=== PATIENT | female | born 1970 | race Caucasian/White ===

== ENCOUNTER 2018-07-01 12:18 | Observation (INO) | payer BC ==
[~2018-07-01] VITALS: Ht 154.9 cm; Wt 105.5 kg
[~2018-07-01 12:18] MED LIST: IBUP-1450 PO; PROP10TA7 PO
[2018-07-01] MEDS ORDERED: SODIUM CHLORIDE 0.9% 1000ML 1,000 ML IV STA (12:31)
--- NOTE | 2018-07-01 12:36 | EMERGENCY ROOM VISIT NOTE ---
History Report prepared by Gideon: Bakari Lee Under the Supervision of: Dr. Matteo Stearns M.D. First contact with patient: 12:24 Chief Complaint: DIZZY Stated Complaint: HEART RELATED, NAUSEA Nursing Triage Summary: see triage note ambulatory independantly with steady upright gait History of Present Illness The patient is a 48 year old female who presents to the Emergency Room with complaints of "lightheaded" sensations that she has been experiencing "sporadically" over the past couple of weeks. The patient states that she felt lightheaded this morning and felt like she was going to pass out. The patient also notes that she experienced an intermittent "tight knot in my chest" at 1030 this morning, 2 hours ago. She admits that she has been on high blood pressure medication for over a year but did not start taking it as prescribed as June 17. She was not taking the medication at all. She denies any SOB. Source of History: patient, spouse/significant other Onset: CP 2 hours ago Position: chest Quality: other ("tight knot" ) Timing: intermittent Associated Symptoms: + headache (lightheaded) Review of Systems See HPI for pertinent positives & negatives. A total of 10 systems reviewed and were otherwise negative. Past Medical & Surgical Old medical records were reviewed. Nurse's notes were reviewed and I agree with. HTN, borderline diabetic. Social History Smoking Status: Never Smoker Drug Use: none Marital Status: Housing Status: lives with significant other Occupation Status: employed Current/Historical Medications Scheduled Atorvastatin (Lipitor), 10 MG PO DAILY Furosemide (Lasix), 20 MG PO DAILY Hydrochlorothiazide (Hydrochlorothiazide), 25 MG PO DAILY Potassium Chloride Microencaps (Potassium Chloride Er), 10 MEQ PO DAILY Allergies Coded Allergies: No Known Allergies (Verified , 07/01/18) Physical Exam Vital Signs Date Time Temp Pulse Resp B/P (MAP) Pulse Ox O2 Delivery O2 Flow Rate FiO2 07/01/18 14:16 72 16 135/88 97 Room Air 07/01/18 12:20 36.8 88 20 157/101 96 Room Air Physical Exam General: Non-ill appearing middle age female in no acute distress. HEENT: Normal cephalic atraumatic. Pupils are equal round and reactive to light. Extraocular movements are intact. Oropharynx is pink with moist mucous membranes. No swelling of the mouth lips or tongue. Neck: Supple with a midline trachea. No meningeal signs or stiffness, no JVD or bruits. No Stridor. Chest: Clear to auscultation bilaterally. No wheezes or rhonchi. No increased work of breathing. Heart: regular rate and rhythm. Abdomen: Soft nontender, nondistended without rebound guarding or rigidity. Extremities: No cyanosis clubbing or edema. No calf tenderness or assymetry Spine/Back. Non tender to palpation. No CVA tenderness Skin: Good turgor without rashes. Neurologic exam: Cranial nerves two through 12 are intact. Motor and sensation are intact and symmetrical throughout. Medical Decision & Procedures ER Provider Diagnostic Interpretation: Radiology results as stated below per my review and radiologist interpretation: CHEST ONE VIEW PORTABLE CLINICAL HISTORY: 48 years-old Female presenting with CHEST PAIN. TECHNIQUE: Portable upright AP view of the chest was obtained. COMPARISON: 06/25/2016. FINDINGS: Cardiomediastinal silhouette normal. Lungs and pleural spaces clear. Osseous structures normal. Cholecystectomy clips noted. IMPRESSION: 1. No acute cardiopulmonary disease. Electronically signed by: Solo Barakat M.D. 07/01/2018 12:47 PM Dictated Date/Time: 07/01/2018 12:46 PM Laboratory Results 07/01/18 13:00 Red Blood Count 4.89, Mean Corpuscular Volume 77.7, Mean Corpuscular Hemoglobin 25.4, Mean Corpuscular Hemoglobin Concent 32.6, Mean Platelet Volume 9.7, Neutrophils (%) (Auto) 64.5, Lymphocytes (%) (Auto) 27.9, Monocytes (%) (Auto) 5.7, Eosinophils (%) (Auto) 1.3, Basophils (%) (Auto) 0.3, Neutrophils # (Auto) 4.56, Lymphocytes # (Auto) 1.97, Monocytes # (Auto) 0.40, Eosinophils # (Auto) 0.09, Basophils # (Auto) 0.02 07/01/18 13:00 Test 07/01/18 13:00 White Blood Count 7.06 K/uL (4.8-10.8) Red Blood Count 4.89 M/uL (4.2-5.4) Hemoglobin 12.4 g/dL (12.0-16.0) Hematocrit 38.0 % (37-47) Mean Corpuscular Volume 77.7 fL (80-100) Mean Corpuscular Hemoglobin 25.4 pg (25-34) Mean Corpuscular Hemoglobin Concent 32.6 g/dl (32-36) Platelet Count 215 K/uL (130-400) Mean Platelet Volume 9.7 fL (7.4-10.4) Neutrophils (%) (Auto) 64.5 % Lymphocytes (%) (Auto) 27.9 % Monocytes (%) (Auto) 5.7 % Eosinophils (%) (Auto) 1.3 % Basophils (%) (Auto) 0.3 % Neutrophils # (Auto) 4.56 K/uL (1.4-6.5) Lymphocytes # (Auto) 1.97 K/uL (1.2-3.4) Monocytes # (Auto) 0.40 K/uL (0.11-0.59) Eosinophils # (Auto) 0.09 K/uL (0-0.5) Basophils # (Auto) 0.02 K/uL (0-0.2) RDW Standard Deviation 47.0 fL (36.4-46.3) RDW Coefficient of Variation 16.6 % (11.5-14.5) Immature Granulocyte % (Auto) 0.3 % Immature Granulocyte # (Auto) 0.02 K/uL (0.00-0.02) Anion Gap 5.0 mmol/L (3-11) Est Creatinine Clear Calc Drug Dose 93.1 ml/min Estimated GFR () 95.9 Estimated GFR (Non- 82.8 BUN/Creatinine Ratio 16.8 (10-20) Calcium Level 9.2 mg/dl (8.5-10.1) Total Bilirubin 0.4 mg/dl (0.2-1) Direct Bilirubin 0.1 mg/dl (0-0.2) Aspartate Amino Transf (AST/SGOT) 15 U/L (15-37) Alanine Aminotransferase (ALT/SGPT) 22 U/L (12-78) Alkaline Phosphatase 80 U/L (45-117) Total Creatine Kinase 76 U/L (26-192) Creatine Kinase MB < 1.0 ng/ml (0.5-3.6) Creatine Kinase MB Ratio (0-3.0) Total Protein 7.9 gm/dl (6.4-8.2) Albumin 4.1 gm/dl (3.4-5.0) Lipase 158 U/L (73-393) Thyroid Stimulating Hormone (TSH) 1.310 uIu/ml (0.300-4.500) Laboratory studies as stated above per my review. Medications Administered Medications (Trade) Dose Ordered Sig/Sirisha Route Start Time Stop Time Status Last Admin Dose Admin Sodium Chloride 1,000 ml @ 999 mls/hr Q1H1M STAT IV 07/01/18 12:31 07/01/18 13:31 DC 07/01/18 13:07 999 MLS/HR Aspirin (Aspirin Chew) 324 mg NOW STAT PO 07/01/18 13:50 07/01/18 13:51 DC 07/01/18 14:25 324 MG ECG Per My Interpretation Indication: chest pain, other (HTN) Rate (beats per minute): 84 Rhythm: normal sinus Findings: nonspecific-ST abn, other (Poor baseline) Comparison ECG Date: 06/25/216 Change: #2 Normal Sinus Rhythm 77, LVH, no acute ischemic change, nonspecific T-wave abnormality. ED Course 1225: Past medical records reviewed. The patient was evaluated in room A9B, and a complete history and physical examination were performed. 1231: Ordered Sodium Chloride 1000 mL @ 999 mL/hr IV. 1429: [facility] She will evaluate the patient for further treatment. Medical Decision Differential Diagnosis includes; arrhythmia, acute coronary syndrome, electrolyte or metabolic abnormality. This patient comes in after feeling dizzy like she was in a pass out. She is supposed to be on blood pressure medication but has not been taking it. She recently restarted it at the end of May. She said she had a vague chest discomfort and her blood pressure was high at the time she feels better now. It was off and on but lasted briefly. She feels well at present. She has no neurologic deficits. It sounds like it is more of a near syncope rather than a vertigo there is no spinning. IV access established and blood work was obtained. EKG and chest x-ray were obtained. She was reassessed frequently. Her EKG shows normal sinus rhythm the anterior T waves looks slightly more flattened or inverted than before but no definite change. Chest x-ray is unremarkable troponin was unremarkable a second EKG was obtained after the patient says he started feeling like she had a little more pressure and it was unchanged compared to EKG #1. She was given aspirin and is now resting comfortably. She has no acute electrolyte or metabolic abnormalities. Given her symptoms and risk factors of hypertension, increased cholesterol and borderline diabetes, I do think she needs to be observed for further treatment and evaluation and to rule out cardiac disease. Medication Reconcilliation Current Medication List: was personally reviewed by me Blood Pressure Screening Patient's blood pressure: Elevated blood pressure Referred to hospitalist Consults Time Called: 1420 Consulting Physician: Loree Son PA-C Returned Call: [phone] I discussed the case with Loree Son PA-C. She will evaluate the patient for further treatment. Impression Primary Impression: Precordial chest pain Additional Impression: Dizziness Scribe Attestation The scribe's documentation has been prepared under my direction and personally reviewed by me in its entirety. I confirm that the note above accurately reflects all work, treatment, procedures, and medical decision making performed by me. Departure Information Dispostion Being Evaluated By Hospitalist Referrals Pooja Goode DO (PCP) Patient Instructions My [facility] Problem Qualifiers
--- NOTE | 2018-07-01 12:49 | DIAGNOSTIC IMAGING REPORT ---
CHEST ONE VIEW PORTABLE CLINICAL HISTORY: 48 years-old Female presenting with CHEST PAIN. TECHNIQUE: Portable upright AP view of the chest was obtained. COMPARISON: 06/25/2016. FINDINGS: Cardiomediastinal silhouette normal. Lungs and pleural spaces clear. Osseous structures normal. Cholecystectomy clips noted. IMPRESSION: 1. No acute cardiopulmonary disease. Electronically signed by: Solo Barakat M.D. 07/01/2018 12:47 PM Dictated Date/Time: 07/01/2018 12:46 PM
[2018-07-01 13:13] LABS: BASO % 0.3 %; BASO ABS # 0.02 K/uL (0-0.2); EOS % 1.3 %; EOS ABS # 0.09 K/uL (0-0.5); HEMOGLOBIN 12.4 g/dL (12.0-16.0); IG# 0.02 K/uL (0.00-0.02); LYMPH % 27.9 %; LYMPH ABS # 1.97 K/uL (1.2-3.4); MEAN CELL VOLUME 77.7 fL (80-100); MEAN CORPUSCULAR HEMOGLOBIN 25.4 pg (25-34); MEAN CORPUSCULAR HGB CONC 32.6 g/dl (32-36); MEAN PLATELET VOLUME 9.7 fL (7.4-10.4); MONO % 5.7 %; NEUT % 64.5 %; NEUT ABS # 4.56 K/uL (1.4-6.5); PLATELET COUNT 215 K/uL (130-400); RED CELL DISTRIBUTION WIDTH CV 16.6 % (11.5-14.5); WHITE BLOOD COUNT 7.06 K/uL (4.8-10.8)
[2018-07-01] MEDS ORDERED: POTA10TA32 PO (13:20)
[2018-07-01] MEDS ORDERED: FURO-85 PO (13:20)
[2018-07-01] MEDS ORDERED: ATOR10TA82 PO (13:20)
[2018-07-01] MEDS ORDERED: HYDR25TA5 PO (13:20)
[2018-07-01 13:40] LABS: ALBUMIN 4.1 gm/dl (3.4-5.0); ALKALINE PHOSPHATASE 80 U/L (45-117); ALT/SGPT 22 U/L (12-78); AST/SGOT 15 U/L (15-37); BLOOD UREA NITROGEN 14 mg/dl (7-18); CALCIUM 9.2 mg/dl (8.5-10.1); CARBON DIOXIDE 29 mmol/L (21-32); CKMB < 1.0 ng/ml (0.5-3.6); CREATININE 0.84 mg/dl (0.60-1.20); GLUCOSE 99 mg/dl (70-99); LIPASE 158 U/L (73-393); POTASSIUM 3.2 mmol/L (3.5-5.1); SODIUM 136 mmol/L (136-145); TOTAL PROTEIN 7.9 gm/dl (6.4-8.2)
[2018-07-01] MEDS ORDERED: ASPIRIN 81 MG CHEW PO STA (13:50)
[2018-07-01] MEDS ORDERED: POLYETHYLENE (MIRALAX) 17 GM PACK PO PRN (15:30)
[2018-07-01] MEDS ORDERED: POTASSIUM CHLORIDE 10 MEQ TABCR PO ONE ×2 (15:30→17:30)
[2018-07-01] MEDS ORDERED: ONDANSETRON INJ 2 MG/ML 2 ML VIAL IV PRN (15:30)
[2018-07-01] MEDS ORDERED: ACETAMINOPHEN 325 MG TAB PO PRN (15:30)
[2018-07-01 15:52] VITALS: Ht 154.9 cm; Wt 105.5 kg
[2018-07-01] MEDS ORDERED: IV FLUIDS COMPLETED PRN (16:15)
--- NOTE | 2018-07-01 16:40 | History and Physical ---
History & Physical Date & Time of Service: Jul 01, 2018 at 16:36 Chief Complaint: Precordial Chest Pain Primary Care Physician: Pooja Goode DO History of Present Illness Source: patient, clinic records, hospital records Patient is a 48-year-old female with a PMH of HTN, HLD, prediabetes and Graves' disease who presents with intermittent chest discomfort starting this morning. Patient admits to being noncompliant with blood pressure medications (Lasix and HCTZ) and statin from mid November until a few weeks ago. States that she would forget to take medication or would not feel like filling pillbox. Since re- starting medications, has experienced intermittent lightheadedness at work. 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 Was working this morning when she became lightheaded and nauseous. Blood pressure was taken at this time and was reportedly 110/55. Patient continued to working for the next 3 hours until she experienced sudden onset, central "gripping pressure" if chest described as a 9/10. Pain was nonradiating but was associated with a cold sweat. Episode lasted for 10 minutes and then resolved. BP was rechecked at this time and was 180/120. Came to ED for further evaluation. Had another episode of chest pain in the ED than was not as severe. Currently, patient is asymptomatic. Denies any fever, chills, lightheadedness, dizziness, visual changes, chest pain, palpitations, shortness of breath, abdominal pain, nausea, vomiting, bowel or bladder changes or lower extremity swelling. Denies any previous history of heart disease. No stress test or resting echo, per records. Does not smoke. 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 Physical Exam Vital Signs Date Time Temp Pulse Resp B/P (MAP) Pulse Ox O2 Delivery O2 Flow Rate FiO2 07/01/18 15:52 Room Air 07/01/18 15:12 71 16 134/88 97 07/01/18 14:16 72 16 135/88 97 Room Air 07/01/18 12:20 36.8 88 20 157/101 96 Room Air General Appearance: WD/WN, no apparent distress, + pertinent finding (Resting in bed comfortably) Head: normocephalic, atraumatic Eyes: normal inspection, PERRL, sclerae normal ENT: normal ENT inspection, hearing grossly normal, pharynx normal (Mucous membranes moist) Neck: supple, thyroid normal, no JVD, trachea midline Respiratory/Chest: chest non-tender, lungs clear, normal breath sounds, no respiratory distress, no accessory muscle use Cardiovascular: regular rate, rhythm, no murmur, normal peripheral pulses Abdomen/GI: non tender, soft, no organomegaly Extremities/Musculoskelatal: normal inspection, no calf tenderness, no pedal edema Neurologic/Psych: no motor/sensory deficits, alert, normal mood/affect, normal reflexes, oriented x 3 Skin: normal color, warm/dry Diagnostics Laboratory Results Results Past 24 Hours Test 07/01/18 12:31 07/01/18 13:00 07/01/18 15:24 Range/Units Creatine Kinase MB Ratio 0-3.0 White Blood Count 7.06 4.8-10.8 K/uL Red Blood Count 4.89 4.2-5.4 M/uL Hemoglobin 12.4 12.0-16.0 g/dL Hematocrit 38.0 37-47 % Mean Corpuscular Volume 77.7 80-100 fL Mean Corpuscular Hemoglobin 25.4 25-34 pg Mean Corpuscular Hemoglobin Concent 32.6 32-36 g/dl Platelet Count 215 130-400 K/uL Mean Platelet Volume 9.7 7.4-10.4 fL Neutrophils (%) (Auto) 64.5 % Lymphocytes (%) (Auto) 27.9 % Monocytes (%) (Auto) 5.7 % Eosinophils (%) (Auto) 1.3 % Basophils (%) (Auto) 0.3 % Neutrophils # (Auto) 4.56 1.4-6.5 K/uL Lymphocytes # (Auto) 1.97 1.2-3.4 K/uL Monocytes # (Auto) 0.40 0.11-0.59 K/uL Eosinophils # (Auto) 0.09 0-0.5 K/uL Basophils # (Auto) 0.02 0-0.2 K/uL RDW Standard Deviation 47.0 36.4-46.3 fL RDW Coefficient of Variation 16.6 11.5-14.5 % Immature Granulocyte % (Auto) 0.3 % Immature Granulocyte # (Auto) 0.02 0.00-0.02 K/uL Sodium Level 136 136-145 mmol/L Potassium Level 3.2 3.5-5.1 mmol/L Chloride Level 102 98-107 mmol/L Carbon Dioxide Level 29 21-32 mmol/L Anion Gap 5.0 3-11 mmol/L Blood Urea Nitrogen 14 7-18 mg/dl Creatinine 0.84 0.60-1.20 mg/dl Est Creatinine Clear Calc Drug Dose 93.1 ml/min Estimated GFR () 95.9 Estimated GFR (Non- 82.8 BUN/Creatinine Ratio 16.8 10-20 Random Glucose 99 70-99 mg/dl Calcium Level 9.2 8.5-10.1 mg/dl Total Bilirubin 0.4 0.2-1 mg/dl Direct Bilirubin 0.1 0-0.2 mg/dl Aspartate Amino Transf (AST/SGOT) 15 15-37 U/L Alanine Aminotransferase (ALT/SGPT) 22 12-78 U/L Alkaline Phosphatase 80 45-117 U/L Total Creatine Kinase 76 26-192 U/L Creatine Kinase MB < 1.0 0.5-3.6 ng/ml Total Protein 7.9 6.4-8.2 gm/dl Albumin 4.1 3.4-5.0 gm/dl Lipase 158 73-393 U/L Thyroid Stimulating Hormone (TSH) 1.310 0.300-4.500 uIu/ml Troponin I < 0.015 0-0.045 ng/ml Diagnostic Radiology CXR: IMPRESSION: 1. No acute cardiopulmonary disease. EKG Normal sinus rhythm at 84 bpm with nonspecific T-wave abnormality No change from prior EKG Impression Assessment and Plan Patient is a 48-year-old female with a PMH of HTN, HLD, prediabetes and Graves' disease who presents with intermittent chest discomfort starting this morning. Chest pain -R/o ACS; risk factors include HTN, HLD, prediabetes -Recent non-compliance with medication -Initial troponin negative -EKG-NSR with non-specific T wave abnormality seen previously -CXR-no acute abnormalities -Trend serial cardiac enzymes -Check resting echo -Fasting lipid panel, a1c in AM -Repeat EKG in am -NPO after midnight -Exercise stress echo scheduled for AM if troponin is negative x 3 Lightheadedness, postural hypotension -In setting of restarting lasix and hctz -Orthostatics ordered -Hold Lasix, HCTZ -Amlodipine 2.5mg PRN Q6 for SBP >160 -Echo ordered HLD -Recently restarted statin Graves' Disease -Not on medication -TSH wnl DVT Ppx: SCDs Code status: FULL PCP: Rupa Dispo: Observation telemetry. Plan to return home once medically stable. Patient seen in collaboration with Dr. Arnold. Please see addendum. ATTENDING ADDENDUM care coordinated with LORRAINE Kothari please refer to her notes for full details, I agree with her notes patient seen and examined, records reviewed by myself as well on exam, patient seen sitting up in bed, comfortable chest pain free no active dyspnea, palpitations, dizziness no other symptoms VS noted and reviewed oriented x 3 , not in distress, speaks in sentences with no effort nor accessory muscle use normal rate, regular rhythm, no murmurs clear breath sounds bilaterally no rales/wheezes non distended, soft, nontender no bipedal edema, erythema, warmth no neuro deficits troponins negative K 3.2 ASSESSMENT/PLAN> CHEST PAIN R/O ACS serial troponins echo stress test in AM ASA daily HISTORY OF HYPERTENSION suspect orthostatic hypotension with present diuretic medications d/c diuretics monitor BP PRN Amlodipine other diagnoses and plan of care as per LORRAINE Kothari's notes Neptali Arnold MD Advanced Directives Existing Living Will: No Existing Power of Assistant Center Director: No Resuscitation Status VTE Prophylaxis Will order VTE Prophylaxis: Yes
[2018-07-01] MEDS ORDERED: AMLODIPINE BESYLATE 5 MG TAB PO PRN (17:30)
[2018-07-01 17:52] VITALS: BP 149/90; PULSE 78
[2018-07-01 19:24] VITALS: BP 132/81; PULSE 75; TEMP 36.6; O2SAT 96
[2018-07-01 22:22] VITALS: BP 160/99; PULSE 70; TEMP 36.8; O2SAT 94
[2018-07-02 03:33] LABS: HEMATOCRIT 35.8 % (37-47); HEMOGLOBIN 11.4 g/dL (12.0-16.0); MEAN CORPUSCULAR HEMOGLOBIN 24.8 pg (25-34); MEAN CORPUSCULAR HGB CONC 31.8 g/dl (32-36); MEAN PLATELET VOLUME 9.6 fL (7.4-10.4); PLATELET COUNT 185 K/uL (130-400); RED CELL DISTRIBUTION WIDTH CV 16.7 % (11.5-14.5); RED CELL DISTRIBUTION WIDTH SD 47.9 fL (36.4-46.3)
[2018-07-02 03:50] VITALS: BP 120/79; PULSE 63; TEMP 36.5; O2SAT 97
[2018-07-02 03:50] LABS: PTT PATIENT 25.8 SECONDS (21.0-31.0)
[2018-07-02 03:55] LABS: BLOOD UREA NITROGEN 12 mg/dl (7-18); CALCIUM 8.3 mg/dl (8.5-10.1); CARBON DIOXIDE 28 mmol/L (21-32); CHOLESTEROL 142 mg/dl (0-200); CREATININE 0.73 mg/dl (0.60-1.20); GLUCOSE 98 mg/dl (70-99); LDL CHOLESTEROL CALCULATED 71 mg/dl; POTASSIUM 3.4 mmol/L (3.5-5.1); SODIUM 139 mmol/L (136-145)
[2018-07-02 06:13] LABS: HEMOGLOBIN A1C 5.8 % (4.5-5.6)
[2018-07-02 07:27] VITALS: BP 138/84; PULSE 78; TEMP 36.8; O2SAT 95
[2018-07-02 08:00] VITALS: O2SAT 95
[2018-07-02] MEDS ORDERED: ASPIRIN 81 MG ECTAB PO SCH (09:00)
[2018-07-02] MEDS ORDERED: ATORVASTATIN 10 MG TAB PO SCH (09:00)
[2018-07-02] MEDS ORDERED: POTASSIUM CHLORIDE 20 MEQ TABCR PO ONE (09:45)
[2018-07-02 10:43] VITALS: BP 128/84; PULSE 62; TEMP 36.6; O2SAT 98
[2018-07-02] MEDS ORDERED: PERFLUTREN LIPID MICROSPHERE (DEFINITY) IV ONE (12:54)
--- NOTE | 2018-07-02 13:53 | EXERCISE STRESS ECHO ---
*NOTICE TO RECEIVING LIBERTARIAN AGENCY This information is strictly Confidential and protected under [place] law. [place] law prohibits you from making any further disclosure of this information unless further disclosure is expressly permitted by the written consent of the person to whom it pertains or is authorized by law. A general authorization for the release of medical or other information is not sufficient for this purpose. Hospital accepts no responsibility if the information is made available to any other person, INCLUDING THE PATIENT. Interpretation Summary * Name: SAMARIA REARDON Study Date: 07/02/2018 10:51 AM BP: 126/83 mmHg * Patient Location: .2T\S\E222\S\1 HR: 71 * : 1970 (M/d/yyyy) Gender: Female Height: 61 in * Age: 48 yrs Ethnicity: [place] Weight: 232 lb * Ordering Physician: Loree Kothari * Referring Physician: Self, Referred * Performed By: Mary Ann Jaimes RDCS * * Reason For Study: CHEST PAIN * BSA: 2.0 m2 * The study was technically limited. * The stress echocardiogram is negative for inducible ischemia. * Exercise capacity is below average. * -- Conclusions -- * Ejection Fraction = 60-65%. * There is mild concentric left ventricular hypertrophy. * Grade I diastolic dysfunction, (abnormal relaxation pattern). * No significant valvular pathology. Procedure Details * A contrast injection of Definity was performed to improve assessment of LV function. * Contrast was injected into an intravenous site in the right arm. * One vial of Definity ultrasound contrast was diluted in normal saline to a total volume of 10 ml. A total of '2' ml of solution was administered during imaging. * Lot # [id number] of Definity utilized for procedure. * Expiration date JUN 10. * The attending nurse who injected the contrast agent was BRENDEN IZAGUIRRE RN. * ECHOEX, CPT #[id number] * ECHO DOPPLER, CPT #[id number] * ECHO COLOR FLOW, CPT #[id number] Left Ventricle * The left ventricle is normal in size. * There is no thrombus. * There is mild concentric left ventricular hypertrophy. * Left ventricular systolic function is normal. * Ejection Fraction = 60-65%. * Resting wall motion: Normal. Stress wall motion: Appropriate increase in Left ventricular systolic function and decrease in cavity size. No stress induced segmental wall motion abnormalities. Right Ventricle * The right ventricle is normal in size and function. Atria * The left atrial size is normal. * Right atrial size is normal. * No ASD detected; PFO is not assessed. Mitral Valve * The mitral valve is normal. * There is no mitral valve stenosis. * There is trace mitral regurgitation. Tricuspid Valve * The tricuspid valve is normal. * There is no tricuspid stenosis. * There is trace tricuspid regurgitation. Aortic Valve * The aortic valve is trileaflet. * No hemodynamically significant valvular aortic stenosis. * No aortic regurgitation is present. Pulmonic Valve * The pulmonic valve is not well visualized. Great Vessels * The aortic root is normal size. Pericardium * There is no pericardial effusion. Stress Parameters * The baseline ECG displays normal sinus rhythm. * Stress ECG: No significant ST changes. * The stress portion of this study was personally supervised by the undersigned interpreting physician. * Rest heart rate was '71' BPM. * Rest blood pressure was '126/83' * Maximum heart rate achieved was 160 bpm. * Maximum heart rate was 92 % of maximum age-predicted heart rate. * Maximum blood pressure was '172/79' * Total exercise time was '3:00' * Maximum exercise MET level achieved was '4.60' METS * Maximum treadmill speed was '1.70' miles per hour. * Maximum treadmill elevation was '10.00'% grade. * Exercise was terminated due to 'FATIGUE AND REACHING TARGET HR' * Exercise was stopped due to fatigue. * Normal blood pressure response to exercise. Left Ventricular Diastolic Function * Grade I diastolic dysfunction, (abnormal relaxation pattern). MMode 2D Measurements and Calculations IVSd 1.2 cm IVSs 1.7 cm LVIDd 5.6 cm LVIDs 3.5 cm LVPWd 1.3 cm LVPWs 2.0 cm IVS/LVPW 0.93 FS 37.2 % EDV(Teich) 154.2 ml ESV(Teich) 51.6 ml EF(Teich) 66.6 % EDV(cubed) 176.3 ml ESV(cubed) 43.6 ml EF(cubed) 75.3 % % IVS thick 42.7 % % LVPW thick 54.5 % LV mass(C)d 299.1 grams LV mass(C)dI 148.7 grams/m\S\2 LV mass(C)s 282.2 grams LV mass(C)sI 140.2 grams/m\S\2 SV(Teich) 102.6 ml SI(Teich) 51.0 ml/m\S\2 SV(cubed) 132.7 ml SI(cubed) 66.0 ml/m\S\2 Ao root diam 3.5 cm Ao root area 9.5 cm\S\2 LA dimension 2.9 cm LA/Ao 0.84 LVAd ap4 34.3 cm\S\2 LVLd ap4 8.4 cm EDV(MOD-sp4) 114.9 ml EDV(sp4-el) 119.2 ml LVAs ap4 20.2 cm\S\2 LVLs ap4 6.8 cm ESV(MOD-sp4) 51.0 ml ESV(sp4-el) 51.3 ml EF(MOD-sp4) 55.6 % EF(sp4-el) 57.0 % LVAd ap2 27.5 cm\S\2 LVLd ap2 7.2 cm EDV(MOD-sp2) 84.9 ml EDV(sp2-el) 89.3 ml LVAs ap2 17.9 cm\S\2 LVLs ap2 6.8 cm ESV(MOD-sp2) 38.2 ml ESV(sp2-el) 39.7 ml EF(MOD-sp2) 55.0 % EF(sp2-el) 55.5 % LVLd %diff -16.48 % EDV(MOD-bp) 104.9 ml LVLs %diff 1.2 % ESV(MOD-bp) 44.6 ml EF(MOD-bp) 57.4 % SV(MOD-sp4) 63.9 ml SI(MOD-sp4) 31.8 ml/m\S\2 SV(MOD-sp2) 46.7 ml SI(MOD-sp2) 23.2 ml/m\S\2 SV(MOD-bp) 60.3 ml SI(MOD-bp) 29.9 ml/m\S\2 SV(sp4-el) 67.9 ml SI(sp4-el) 33.7 ml/m\S\2 SV(sp2-el) 49.5 ml SI(sp2-el) 24.6 ml/m\S\2 Doppler Measurements and Calculations MV E max enrique 76.0 cm/sec MV A max enrique 83.8 cm/sec MV E/A 0.91 MV dec time 0.28 sec Ao V2 max 178.2 cm/sec Ao max PG 12.7 mmHg Ao max PG (full) 9.5 mmHg Ao V2 mean 117.3 cm/sec Ao mean PG 6.5 mmHg Ao mean PG (full) 4.8 mmHg Ao V2 VTI 41.3 cm LV V1 max PG 3.2 mmHg LV V1 mean PG 1.6 mmHg LV V1 max 88.8 cm/sec LV V1 mean 59.0 cm/sec LV V1 VTI 19.4 cm SV(Ao) 393.2 ml SI(Ao) 195.4 ml/m\S\2
[2018-07-02 15:34] VITALS: BP 142/92; PULSE 79; TEMP 36.8; O2SAT 96
[2018-07-02] MEDS ORDERED: MCRK20 PO (15:48)
--- NOTE | 2018-07-02 15:50 | Discharge Instructions ---
Discharge Instructions Date of Service Jul 02, 2018. Admission Reason for Admission: Precordial Chest Pain Discharge Discharge Diagnosis / Problem: CHEST PAIN Discharge Goals Goal(s): Diagnostic testing, Therapeutic intervention Activity Recommendations Activity Limitations: as noted below (NO HEAVY EXERTION ) Lifting Limitations: until after follow-up appointment Exercise/Sports Limitations: until after follow-up appointment Driving or Machine Use: UNTIL AFTER FOLLOW UP APPOINTMENT . Instructions / Follow-Up Instructions / Follow-Up PLEASE REVIEW YOUR NEW MEDICATION LIST AND FOLLOW INSTRUCTIONS CAREFULLY. ALWAYS STAY HYDRATED. FOLLOW LOW SALT, LOW CARBOHYDRATE DIET. CALL PRIMARY CARE PHYSICIAN OR RETURN TO THE ER IMMEDIATELY IF WITH RECURRENCE OF SYMPTOMS. FOLLOW UP WITH PRIMARY CARE PHYSICIAN DR. CARMEN (ASSOCIATE OF DR. HOLDEN) ON FRIDAY JULY 06, 2018 AT 10:45AM. Current Hospital Diet Patient's current hospital diet: AHA Diet (Heart Healthy) Discharge Diet Recommended Diet: AHA Diet (Heart Healthy), Diabetes Type 2 Diet Procedures Procedures Performed: STRESS TEST Pending Studies Studies pending at discharge: no Laboratory Results Hemoglobin A1c Test 07/02/18 03:24 Range/Units Estimated Average Glucose 120 mg/dl Hemoglobin A1c 5.8 H 4.5-5.6 % Lipid Panel Test 07/02/18 03:24 Range/Units Triglycerides Level 128 0-150 mg/dl Cholesterol Level 142 0-200 mg/dl HDL Cholesterol 45 mg/dl Cholesterol/HDL Ratio 3.2 LDL Cholesterol, Calculated 71 mg/dl Medical Emergencies . Who to Call and When: Medical Emergencies: If at any time you feel your situation is an emergency, please call 911 immediately. . Non-Emergent Contact Non-Emergency issues call your: Primary Care Provider Call Non-Emergent contact if: you have a fever, you have any medication questions . . "Provider Documentation" section prepared by Neptali Arnold. .
[2018-07-02 15:58] VITALS: BP 142/92; PULSE 79; TEMP 36.8; O2SAT 96
--- NOTE | 2018-07-02 19:12 | Progress Note ---
Medicine Progress Note Date & Time of Visit: Jul 02, 2018 at 19:01. Subjective Seen resting in bed, comfortable, sitting up present bedside States she feels much better compared to yesterday Chest pain-free, no recurrence of chest pain while admitted Ambulating in the room with no problems Denies weakness, dizziness, shortness of breath States she is ready and would like to be discharged today no other symptoms Objective Last 8 Hrs Date Time Temp Pulse Resp B/P (MAP) Pulse Ox O2 Delivery O2 Flow Rate FiO2 07/02/18 15:58 36.8 79 24 96 Room Air 07/02/18 15:34 36.8 79 24 142/92 (109) 96 Room Air Physical Exam: Oriented 3, not in distress, speaking in sentences General- adult Eyes- anicteric Neck- supple, no JVD Lungs- clear breath sounds bilaterally, no rales or wheezes Heart- regular rhythm; no murmur, normal rate Abdomen- normal bowel sounds, soft, nontender Extremities- no pretibial edema, no calf tenderness Neuro- alert, oriented x 3; no gross focal deficits Skin- warm & dry Laboratory Results: Last 24 Hours Test 07/01/18 21:20 07/02/18 03:24 Troponin I < 0.015 ng/ml < 0.015 ng/ml White Blood Count 5.50 K/uL Red Blood Count 4.59 M/uL Hemoglobin 11.4 g/dL Hematocrit 35.8 % Mean Corpuscular Volume 78.0 fL Mean Corpuscular Hemoglobin 24.8 pg Mean Corpuscular Hemoglobin Concent 31.8 g/dl RDW Standard Deviation 47.9 fL RDW Coefficient of Variation 16.7 % Platelet Count 185 K/uL Mean Platelet Volume 9.6 fL Prothrombin Time 10.4 SECONDS Prothromb Time International Ratio 1.0 Activated Partial Thromboplast Time 25.8 SECONDS Partial Thromboplastin Ratio 1.0 Sodium Level 139 mmol/L Potassium Level 3.4 mmol/L Chloride Level 106 mmol/L Carbon Dioxide Level 28 mmol/L Anion Gap 5.0 mmol/L Blood Urea Nitrogen 12 mg/dl Creatinine 0.73 mg/dl Est Creatinine Clear Calc Drug Dose 106.6 ml/min Estimated GFR () 113.7 Estimated GFR (Non- 98.1 BUN/Creatinine Ratio 16.2 Random Glucose 98 mg/dl Estimated Average Glucose 120 mg/dl Hemoglobin A1c 5.8 % Calcium Level 8.3 mg/dl Iron Level 74 mcg/dl Triglycerides Level 128 mg/dl Cholesterol Level 142 mg/dl HDL Cholesterol 45 mg/dl LDL Cholesterol, Calculated 71 mg/dl VLDL Cholesterol, Calculated 26 mg/dl Cholesterol/HDL Ratio 3.2 Assessment & Plan Patient is a 48-year-old female with a PMH of HTN, HLD, prediabetes and Graves' disease who presents with intermittent chest discomfort starting this morning. Chest pain, acute coronary syndrome ruled out likely related to episode of hypertension Troponins 3 negative -EKG-NSR with non-specific T wave abnormality seen previously -CXR-no acute Stress echo: * The stress echocardiogram is negative for inducible ischemia. * Exercise capacity is below average. * -- Conclusions -- * Ejection Fraction = 60-65%. * There is mild concentric left ventricular hypertrophy. * Grade I diastolic dysfunction, (abnormal relaxation pattern). * No significant valvular pathology. Blood pressure monitored while admitted, remained normotensive Monitor blood pressure as an outpatient bilateral congestion Lightheadedness, postural hypotension -In setting of restarting lasix and hctz Lasix, HCTZ have been discontinued while admitted Patient remained normotensive Monitor blood pressure as an outpatient Hypokalemia Likely secondary to diuretics Potassium on admission was 3.2, given p.o. potassium Given 5 days of potassium 20 mEq Monitor potassium as an outpatient on follow-up Patient advised to hydrate well and follow AHA diet Prediabetes A1c 5.8 patient advised to follow diabetic diet monitor as an outpatient HLD -Recently restarted statin -Riglycerides 128 LDL 71 HDL 45 Graves' Disease -Not on medication -TSH wnl Dispo: Discharged home Follow up with primary care physician Friday, July 06, 2018
--- NOTE | 2018-07-02 19:13 | Discharge Summary ---
Discharge Summary Date of Service Jul 02, 2018. Discharge Summary Admission Date: Jul 01, 2018 at 14:45 Discharge Date: Jul 02, 2018 Discharge Disposition: Home Principal Diagnosis: Chest pain, acute coronary syndrome ruled out ; likely related to episode of hypertension Secondary Diagnoses/Problems: Please refer to hospital course below. Procedures: Stress echo Medication Reconciliation New Medications: Potassium Chloride (Klor-Con M20) 20 Meq Tabcr 1 TAB PO DAILY for 5 Days, #5 TABS Continued Medications: Atorvastatin (Lipitor) 10 Mg Tab 10 MG PO DAILY Discontinued Medications: Furosemide (Lasix) 20 Mg Tab 20 MG PO DAILY Hydrochlorothiazide (Hydrochlorothiazide) 25 Mg Tab 25 MG PO DAILY Potassium Chloride Microencaps (Potassium Chloride Er) 10 Meq Tab 10 MEQ PO DAILY Admission Information HPI (per Admitting provider): Patient is a 48-year-old female with a PMH of HTN, HLD, prediabetes and Graves' disease who presents with intermittent chest discomfort starting this morning. Patient admits to being noncompliant with blood pressure medications (Lasix and HCTZ) and statin from mid November until a few weeks ago. States that she would forget to take medication or would not feel like filling pillbox. Since re- starting medications, has experienced intermittent lightheadedness at work. Patient works as a associate professor of english and notes symptoms when bending down or changing positions quickly. Was working this morning when she became lightheaded and nauseous. Blood pressure was taken at this time and was reportedly 110/55. Patient continued to working for the next 3 hours until she experienced sudden onset, central "gripping pressure" if chest described as a 9/10. Pain was nonradiating but was associated with a cold sweat. Episode lasted for 10 minutes and then resolved. BP was rechecked at this time and was 180/120. Came to ED for further evaluation. Had another episode of chest pain in the ED than was not as severe. Currently, patient is asymptomatic. Denies any fever, chills, lightheadedness, dizziness, visual changes, chest pain, palpitations, shortness of breath, abdominal pain, nausea, vomiting, bowel or bladder changes or lower extremity swelling. Denies any previous history of heart disease. No stress test or resting echo, per records. Does not smoke. Physical Exam (per Admitting): General Appearance: WD/WN, no apparent distress, + pertinent finding ( Resting in bed comfortably) Head: normocephalic, atraumatic Eyes: normal inspection, PERRL, sclerae normal ENT: normal ENT inspection, hearing grossly normal, pharynx normal (Mucous membranes moist) Neck: supple, thyroid normal, no JVD, trachea midline Respiratory/Chest: chest non-tender, lungs clear, normal breath sounds, no respiratory distress, no accessory muscle use Cardiovascular: regular rate, rhythm, no murmur, normal peripheral pulses Abdomen/GI: non tender, soft, no organomegaly Extremities/Musculoskelatal: normal inspection, no calf tenderness, no pedal edema Neurologic/Psych: no motor/sensory deficits, alert, normal mood/affect, normal reflexes, oriented x 3 Skin: normal color, warm/dry Hospital Course Patient is a 48-year-old female with a PMH of HTN, HLD, prediabetes and Graves' disease who presents with intermittent chest discomfort starting this morning. Chest pain, acute coronary syndrome ruled out likely related to episode of hypertension Troponins 3 negative -EKG-NSR with non-specific T wave abnormality seen previously -CXR-no acute Stress echo: * The stress echocardiogram is negative for inducible ischemia. * Exercise capacity is below average. * -- Conclusions -- * Ejection Fraction = 60-65%. * There is mild concentric left ventricular hypertrophy. * Grade I diastolic dysfunction, (abnormal relaxation pattern). * No significant valvular pathology. Blood pressure monitored while admitted, remained normotensive Monitor blood pressure as an outpatient bilateral congestion Lightheadedness, postural hypotension -In setting of restarting lasix and hctz Lasix, HCTZ have been discontinued while admitted Patient remained normotensive Monitor blood pressure as an outpatient Hypokalemia Likely secondary to diuretics Potassium on admission was 3.2, given p.o. potassium Given 5 days of potassium 20 mEq Monitor potassium as an outpatient on follow-up Patient advised to hydrate well and follow AHA diet Prediabetes A1c 5.8 patient advised to follow diabetic diet monitor as an outpatient HLD -Recently restarted statin -Riglycerides 128 LDL 71 HDL 45 Graves' Disease -Not on medication -TSH wnl Dispo: Discharged home Follow up with primary care physician Friday, July 06, 2018 Total time spent on discharge = 30 minutes This includes examination of the patient, discharge planning, medication reconciliation, and communication with other providers. Discharge Instructions Discharge Instructions Date of Service Jul 02, 2018. Admission Reason for Admission: Precordial Chest Pain Discharge Discharge Diagnosis / Problem: CHEST PAIN Discharge Goals Goal(s): Diagnostic testing, Therapeutic intervention Activity Recommendations Activity Limitations: as noted below (NO HEAVY EXERTION ) Lifting Limitations: until after follow-up appointment Exercise/Sports Limitations: until after follow-up appointment Driving or Machine Use: UNTIL AFTER FOLLOW UP APPOINTMENT . Instructions / Follow-Up Instructions / Follow-Up PLEASE REVIEW YOUR NEW MEDICATION LIST AND FOLLOW INSTRUCTIONS CAREFULLY. ALWAYS STAY HYDRATED. FOLLOW LOW SALT, LOW CARBOHYDRATE DIET. CALL PRIMARY CARE PHYSICIAN OR RETURN TO THE ER IMMEDIATELY IF WITH RECURRENCE OF SYMPTOMS. FOLLOW UP WITH PRIMARY CARE PHYSICIAN DR. CARMEN (ASSOCIATE OF DR. HOLDEN) ON FRIDAY JULY 06, 2018 AT 10:45AM. Current Hospital Diet Patient's current hospital diet: AHA Diet (Heart Healthy) Discharge Diet Recommended Diet: AHA Diet (Heart Healthy), Diabetes Type 2 Diet Procedures Procedures Performed: STRESS TEST Pending Studies Studies pending at discharge: no Laboratory Results Hemoglobin A1c Test 07/02/18 03:24 Range/Units Estimated Average Glucose 120 mg/dl Hemoglobin A1c 5.8 H 4.5-5.6 % Lipid Panel Test 07/02/18 03:24 Range/Units Triglycerides Level 128 0-150 mg/dl Cholesterol Level 142 0-200 mg/dl HDL Cholesterol 45 mg/dl Cholesterol/HDL Ratio 3.2 LDL Cholesterol, Calculated 71 mg/dl Medical Emergencies . Who to Call and When: Medical Emergencies: If at any time you feel your situation is an emergency, please call 911 immediately. . Non-Emergent Contact Non-Emergency issues call your: Primary Care Provider Call Non-Emergent contact if: you have a fever, you have any medication questions . . "Provider Documentation" section prepared by Neptali Arnold. .
== END 2018-07-02 16:18 | disposition home or self-care (01) ==
LOC: C.EDB 12:19 → C.2T 14:45 → ENRESERV 15:04
PROVIDERS: ADMIT Internal Medicine; ATTEND Internal Medicine
DX: R07.9 Chest pain, unspecified (principal); I10 Essential (primary) hypertension; E78.5 Hyperlipidemia, unspecified; E05.00 Thyrotoxicosis with diffuse goiter without thyrotoxic crisis or storm; Z79.899 Other long term (current) drug therapy

== ENCOUNTER 2023-05-06 15:53 | Inpatient (IN) ==
--- NOTE | 2023-05-06 16:08 | ED Triage Note ---
Date of Service May 06, 2023 History of Present Illness This patient was briefly evaluated while in triage. An abbreviated physical exam was performed. This patient is a 53-year-old Female who presents to the ED for evaluation of right side anterior rib pain. Here 2 weeks for similar complaints and told it was musculoskeletal. States symptoms improved but this morning returned. Worse after work. Notes associated right sided chest pain and shortness of breath. Denies fever/chills, n/v. Tried ibuprofen and muscle relaxer. Physical Exam Constitutional: alert and oriented x3. no acute distress. HEENT: normocephalic, atraumatic. normal conjunctiva.PERRLA. EOM's grossly intact. Respiratory: lungs are clear to auscultation without wheezes, rhonchi, or rales bilaterally. equal chest rise. normal respiratory effort, no accessory muscle use. Cardiovascular: normal heart sounds without murmur. regular rate and rhythm. GI: abdomen is soft, nontender. No palpable masses. No rebound tenderness or guarding. MSK: moves all 4 extremities spontaneously Psych:appropriate mood and affect. Initial orders for labs and / or imaging were placed and patient was placed in the waiting area until a bed is available. Please see further documentation for the full ED course.
--- NOTE | 2023-05-06 17:11 | XRay Report ---
XR ribs RT min 2V w CXR1V CLINICAL HISTORY: right sided chest/rib pain COMPARISON: Chest radiograph July 01, 2018. FINDINGS: Lung volumes are mildly diminished. There is no pneumothorax or pleural effusion. No conso lidation is present. Borderline cardiomegaly is noted. No acute right rib fractures are identified. M inimal bibasilar opacities favor atelectasis. IMPRESSION: No pneumothorax. No acute right rib fractures. ACT 112: Negative or not required by law. Electronically signed by: Tavares Palacios M.D. 05/06/2023 5:10 PM
[2023-05-06] MEDS ORDERED: KETOROLAC TROMETHAMINE 15 MG/ML VIAL IV ONE (17:12)
[2023-05-06 17:16] LABS: Albumin Globulin Ratio 1.2 (0.9-2); Albumin Level 4.4 gm/dl (3.4-5.0); Basophils # (auto) 0.02 K/uL (0-0.2); Basophils % (auto) 0.2 %; Bilirubin,Total 0.4 mg/dl (0.2-1.0); Calcium 9.8 mg/dl (8.6-10.3); Creatinine Clr Calc Pharmacy 77.8 ml/min; Eosinophils # (auto) 0.21 K/uL (0-0.50); Eosinophils % (auto) 2.3 %; Est GFR (African American) 80.8 ml/min; Est GFR (Non-African American) 69.8 ml/min; Globulin 3.6 gm/dl (2.5-4.0); Hematocrit (blood only) 37.6 % (37.0-47.0); Hemoglobin 12.6 g/dl (12.0-16.0); Immature Granulocytes # (auto) 0.12 K/uL (0.01-0.20); Immature Granulocytes % (auto) 1.3 %; Lymphocytes # (auto) 1.67 K/uL (1.2-3.4); Lymphocytes % (auto) 18.5 %; Mean Corpuscular Hemoglobin 26.6 pg (25.0-34.0); Mean Corpuscular Hgb Conc 33.5 g/dL (32.0-36.0); Mean Corpuscular Volume 79.3 fL (80.0-100.0); Mean Platelet Volume 9.9 fL (9.4-12.4); Monocytes # (auto) 0.45 K/uL (0.11-0.59); Neutrophils # (auto) 6.58 K/uL (1.40-6.50); Neutrophils % (auto) 72.7 %; Platelet Count 285 K/uL (130-400); Potassium 3.3 mmol/L (3.5-5.1); RDW Coefficient of Variation 13.8 % (11.5-14.5); RDW Standard Deviation 39.9 fL (36.4-46.3); Red Blood Count 4.74 M/uL (4.20-5.40); White Blood Count 9.05 K/ul (4.8-10.8)
[2023-05-06 17:22] LABS: Troponin I High Sensitivity 2.7 pg/ml (0-14)
--- NOTE | 2023-05-06 17:24 | Emergency Department Note ---
Impression & Plan Abdominal mass, Liver mass, Acute hypokalemia ED Provider Note NAME: SAMARIA REARDON AGE: 53 SEX: F : 1970 ARRIVES VIA: Walk-In INFORMANT: Patient ED PROVIDER(S): Dheeraj Lundy DO CHIEF COMPLAINT: abdominal pain HPI: Patient is a 53-year-old female who presents to the ER for right upper quadrant abdominal pain. She notes that this started 2 weeks ago when she was twisting getting out of bed. Has been constant since then. She notes that improved significantly but was constant throughout the past 2 weeks. Last night it got worse again when she was sitting. Pain radiates from the right upper quadrant to that right upper chest. She notes it is worse with movement. Does go upper her back as well. She notes she does feel sore. She has pain with taking a deep breath which causes some shortness of breath. No headache or change in vision. No other belly pain, nausea, vomiting, or diarrhea. Does not appear to change with eating or drinking. No dysuria, urgency, or frequency. Denies any blood in her urine. No exertional symptoms. Is worse with twisting and bending. PAST MEDICAL HISTORY:See Below PAST SURGICAL HISTORY:See Below FAMILY HISTORY:See Below SOCIAL HISTORY:See Below HOME MEDICATIONS:See Below ALLERGIES:See Below VITALS:See Below PHYSICAL EXAMINATION: GENERAL: Sitting up in bed, alert, well appearing, well nourished, no distress, non-toxic EYE EXAM: normal conjunctiva. OROPHARYNX: no exudate, no erythema, lips, buccal mucosa, and tongue normal and mucous membranes are moist NECK: supple, no nuchal rigidity, no adenopathy, non-tender LUNGS: Clear to auscultation. Normal chest wall mechanics HEART: no murmurs, S1 normal and S2 normal ABDOMEN: abdomen soft, TTP in RUQ tracking around mid axillary line and to the back, normo-active bowel sounds, no masses, no rebound or guarding. BACK: Back is symmetrical on inspection and there is no deformity, no midline tenderness, no CVA tenderness. SKIN: no rashes and no bruising UPPER EXTREMITIES: upper extremities are grossly normal. LOWER EXTREMITIES: No pitting edema. NEURO EXAM: Normal sensorium, cranial nerves II-XII grossly intact, normal speech, no gross weakness of arms, no gross weakness of legs. MEDICAL DECISION MAKING: Patient is a 53-year-old female who presents ER for above-stated complaint. IV was established blood work was obtained. Labs show no significant leukocytosis or anemia. D-dimer was elevated at 9300. BMP with mild hypokalemia at 3.3. LFTs bilirubin was unremarkable. Troponin was negative. Lipase normal. UA was without infection. COVID-negative. Discussed with radiology and they recommended CT of the liver which shows likely cancer. CT of the chest was unremarkable. Patient was updated at bedside after discussion with radiology Dr. Palacios who notes that they are likely able to biopsy this tomorrow. I discussed with Dr. Schuster initially who recommended admission if they are able to biopsy via IR as this would significantly speed up the process. Following this I discussed the case with the hospitalist for further evaluation management and treatment. Triage Nursing notes reviewed. Limited review of prior medical records performed Vital Signs: reviewed and remarkable for no significant abnormalities Differential diagnosis: Differential diagnoses includes but is not limited to gastritis, peptic ulcer disease, GERD, gallbladder disease, pancreatitis, small bowel obstruction, appendicitis, diverticulitis, hernia, urinary tract infection, torsion, perforation, trauma, infectious. ER treatment provided: See below Diagnostics interpreted by me include EKG and cardiac monitoring as listed below: -Cardiac Monitoring: An order was placed for continuous cardiac monitoring. The monitor shows a rate of 80 with sinus rhythm. -ECG: Sinus rhythm rate 89 Left axis No PVCs QTc 476 -Laboratory studies:Interpreted by me as stated above in MDM and shown below. Imaging studies: Xrays: As interpreted by me: X-ray of the chest and ribs showed no acute fracture CTs show: CT of the chest and abdomen pelvis as described above Consultation(s): As described in MDM discussed with Dr. Schuster, Dr. Palacios and the hospitalist Procedures:none Critical Care: None Past Med/Surg History Medical History Graves' disease HLD (hyperlipidemia) Family History Other Family history non-contributory Social History Smoking Status: Never smoker Preferred Language: Cambodian Feels Safe at Home: Yes Allergies Allergies Allergy/AdvReac Type Severity Reaction Status Date / Time No Known Allergies Allergy Verified 04/22/23 14:26 Home Meds Home Medications Medication Instructions Recorded Confirmed candesartan 8 mg tablet 8 mg PO QAM 05/02/19 05/06/23 atorvastatin 20 mg tablet 20 mg PO QAM 06/12/19 05/06/23 acetaminophen 500 mg tablet 1,000 mg PO Q6H PRN Pain 04/22/23 05/06/23 (Tylenol Extra Strength) ascorbic acid (vitamin C) 500 mg 500 mg PO DAILY 04/22/23 05/06/23 tablet (Vitamin C) cholecalciferol (vitamin D3) 50 0 mcg PO DAILY 04/22/23 05/06/23 mcg (2,000 unit) tablet (Vitamin D3) ferrous sulfate 325 mg (65 mg 325 mg PO DAILY 04/22/23 05/06/23 iron) tablet (iron) hydrochlorothiazide 25 mg tablet 25 mg PO DAILY 04/22/23 05/06/23 metformin 500 mg tablet 500 mg PO BID 04/22/23 05/06/23 cyclobenzaprine 5 mg tablet 5 mg PO TID 05/06/23 05/06/23 Results & Data (ED) Vital Signs Vital Signs - 24 hr 05/06/23 16:04 05/06/23 17:09 05/06/23 17:24 Temperature 37.0 C Temperature Source Temporal Artery Scan Pulse Rate 95 H 87 Pulse Rate [Left Apical] 79 Pulse Rhythm [Left Apical] Pulse Strength [Left Apical] Respiratory Rate 19 Respiratory Effort / Characteristics Respiratory Depth Respiratory Pattern Blood Pressure 145/84 H Blood Pressure [Right Arm] 123/80 Blood Pressure Mean 104 Blood Pressure Mean [Right Arm] 94 Pulse Oximetry 93 94 Oxygen Delivery Method Room Air Room Air Sepsis Recent Fever Within 48 Hours No Sepsis New/Unexplained Change in Mental Status No Sepsis Action Taken by Nursing No Action Required 05/06/23 17:30 05/06/23 18:00 05/06/23 18:36 Temperature Temperature Source Pulse Rate 80 76 75 Pulse Rate [Left Apical] Pulse Rhythm [Left Apical] Pulse Strength [Left Apical] Respiratory Rate 22 20 21 Respiratory Effort / Characteristics Respiratory Depth Respiratory Pattern Blood Pressure 120/81 117/74 128/88 Blood Pressure [Right Arm] Blood Pressure Mean 94 88 101 Blood Pressure Mean [Right Arm] Pulse Oximetry 95 95 93 Oxygen Delivery Method Room Air Room Air Room Air Sepsis Recent Fever Within 48 Hours Sepsis New/Unexplained Change in Mental Status Sepsis Action Taken by Nursing 05/06/23 19:00 05/06/23 19:30 05/06/23 21:34 Temperature Temperature Source Pulse Rate 71 72 Pulse Rate [Left Apical] 85 Pulse Rhythm [Left Apical] Regular Pulse Strength [Left Apical] Normal Respiratory Rate 24 20 24 Respiratory Effort / Characteristics Non-Labored Spontaneous Respiratory Depth Normal Respiratory Pattern Regular Blood Pressure 122/71 113/69 Blood Pressure [Right Arm] 111/87 Blood Pressure Mean 88 83 Blood Pressure Mean [Right Arm] 95 Pulse Oximetry 96 96 95 Oxygen Delivery Method Room Air Room Air Room Air Sepsis Recent Fever Within 48 Hours Sepsis New/Unexplained Change in Mental Status Sepsis Action Taken by Nursing 05/06/23 21:45 05/06/23 21:34 05/06/23 22:00 Temperature Temperature Source Pulse Rate 89 86 91 H Pulse Rate [Left Apical] Pulse Rhythm [Left Apical] Pulse Strength [Left Apical] Respiratory Rate 20 22 Respiratory Effort / Characteristics Respiratory Depth Respiratory Pattern Blood Pressure 111/87 112/69 Blood Pressure [Right Arm] Blood Pressure Mean 95 83 Blood Pressure Mean [Right Arm] Pulse Oximetry 95 95 Oxygen Delivery Method Room Air Room Air Sepsis Recent Fever Within 48 Hours Sepsis New/Unexplained Change in Mental Status Sepsis Action Taken by Nursing Laboratory Data 05/06/23 16:40 05/06/23 16:40 Lab Results 05/06/23 05/06/23 05/06/23 Range/Units 16:40 16:40 16:40 WBC 9.05 (4.8-10.8) K/ul RBC 4.74 (4.20-5.40) M/uL Hgb 12.6 (12.0-16.0) g/dl Hct 37.6 (37.0-47.0) % MCV 79.3 L (80.0-100.0) fL MCH 26.6 (25.0-34.0) pg MCHC 33.5 (32.0-36.0) g/dL RDW Std Deviation 39.9 (36.4-46.3) fL RDW Coeff of [place] 13.8 (11.5-14.5) % Plt Count 285 (130-400) K/uL MPV 9.9 (9.4-12.4) fL Immature Gran % (Auto) 1.3 % Neut % (Auto) 72.7 % Lymph % (Auto) 18.5 % [place] % (Auto) 5.0 % Eos % (Auto) 2.3 % Baso % (Auto) 0.2 % Neut # (Auto) 6.58 H (1.40-6.50) K/uL Lymph # (Auto) 1.67 (1.2-3.4) K/uL [place] # (Auto) 0.45 (0.11-0.59) K/uL Eos # (Auto) 0.21 (0-0.50) K/uL Baso # (Auto) 0.02 (0-0.2) K/uL Immature Gran # (Auto) 0.12 (0.01-0.20) K/uL D-Dimer 930 H* (0-500) ug/L FEU Sodium 138 (136-145) mmol/L Potassium 3.3 L (3.5-5.1) mmol/L Chloride 97 L (98-107) mmol/L Carbon Dioxide 31 (21-32) mmol/L Anion Gap 10 (3-11) BUN 16 (6-23) mg/dl Creatinine 0.94 (0.6-1.2) mg/dl Est Cr Clr Drug Dosing 77.8 ml/min Est GFR ( Amer) 80.8 ml/min Est GFR (Non-Af Amer) 69.8 ml/min BUN/Creatinine Ratio 17.0 (10-20) Glucose 105 H (70-99(Fasting)) mg/dl Calcium 9.8 (8.6-10.3) mg/dl Total Bilirubin 0.4 (0.2-1.0) mg/dl AST 23 (13-39) U/L ALT 15 (7-52) U/L Alkaline Phosphatase 116 H (34-104) U/L Troponin I High Sens 2.7 (0-14) pg/ml Total Protein 8.0 (6.0-8.3) gm/dl Albumin 4.4 (3.4-5.0) gm/dl Globulin 3.6 (2.5-4.0) gm/dl Albumin/Globulin Ratio 1.2 (0.9-2) Lipase 27 (11-82) U/L Urine Color Urine Appearance (Clear) Urine pH (4.5-7.5) Ur Specific [place] (1.000-1.030) Urine Protein (Negative) Urine Glucose (UA) (Negative) Urine Ketones (Negative) Urine Blood (Negative) Urine Nitrite (Negative) Urine Bilirubin (Negative) Urine Urobilinogen (Negative) Ur Leukocyte Esterase (Negative) Urine WBC (Auto) (0-5) /hpf Urine RBC (Auto) (0-4) /hpf U Hyaline Cast (Auto) (0-5) /lpf U Epithel Cells (Auto) (0-5) /lpf Urine Bacteria (Auto) (Negative) SARS-CoV-2, RNA, NAAT (NEGATIVE) 05/06/23 05/06/23 05/06/23 Range/Units 17:05 17:58 20:27 WBC (4.8-10.8) K/ul RBC (4.20-5.40) M/uL Hgb (12.0-16.0) g/dl Hct (37.0-47.0) % MCV (80.0-100.0) fL MCH (25.0-34.0) pg MCHC (32.0-36.0) g/dL RDW Std Deviation (36.4-46.3) fL RDW Coeff of [place] (11.5-14.5) % Plt Count (130-400) K/uL MPV (9.4-12.4) fL Immature Gran % (Auto) % Neut % (Auto) % Lymph % (Auto) % [place] % (Auto) % Eos % (Auto) % Baso % (Auto) % Neut # (Auto) (1.40-6.50) K/uL Lymph # (Auto) (1.2-3.4) K/uL [place] # (Auto) (0.11-0.59) K/uL Eos # (Auto) (0-0.50) K/uL Baso # (Auto) (0-0.2) K/uL Immature Gran # (Auto) (0.01-0.20) K/uL D-Dimer (0-500) ug/L FEU Sodium (136-145) mmol/L Potassium (3.5-5.1) mmol/L Chloride (98-107) mmol/L Carbon Dioxide (21-32) mmol/L Anion Gap (3-11) BUN (6-23) mg/dl Creatinine (0.6-1.2) mg/dl Est Cr Clr Drug Dosing ml/min Est GFR ( Amer) ml/min Est GFR (Non-Af Amer) ml/min BUN/Creatinine Ratio (10-20) Glucose (70-99(Fasting)) mg/dl Calcium (8.6-10.3) mg/dl Total Bilirubin (0.2-1.0) mg/dl AST (13-39) U/L ALT (7-52) U/L Alkaline Phosphatase (34-104) U/L Troponin I High Sens 3.1 (0-14) pg/ml Total Protein (6.0-8.3) gm/dl Albumin (3.4-5.0) gm/dl Globulin (2.5-4.0) gm/dl Albumin/Globulin Ratio (0.9-2) Lipase (11-82) U/L Urine Color Yellow Urine Appearance Cloudy A (Clear) Urine pH 5.5 (4.5-7.5) Ur Specific [place] 1.021 (1.000-1.030) Urine Protein Negative (Negative) Urine Glucose (UA) Negative (Negative) Urine Ketones Negative (Negative) Urine Blood Negative (Negative) Urine Nitrite Negative (Negative) Urine Bilirubin Negative (Negative) Urine Urobilinogen Negative (Negative) Ur Leukocyte Esterase Negative (Negative) Urine WBC (Auto) 1-5 (0-5) /hpf Urine RBC (Auto) 0-4 (0-4) /hpf U Hyaline Cast (Auto) 5-10 H (0-5) /lpf U Epithel Cells (Auto) >30 H (0-5) /lpf Urine Bacteria (Auto) 1+ H (Negative) SARS-CoV-2, RNA, NAAT NEGATIVE (NEGATIVE) Administered Medications Discontinued Medications Ioversol (Optiray 320 100ml) 109 ml IV ONCE ONE Stop: 05/06/23 18:37 Last Admin: 05/06/23 18:36 Dose: 109 ml Documented By: JESSICA Ioversol (Optiray 320 500ml) 109 ml IV ONCE ONE Stop: 05/06/23 18:44 Last Admin: 05/06/23 18:44 Dose: 109 ml Documented By: JESSICA Ketorolac Tromethamine (Ketorolac Tromethamine 15 Mg/Ml Vial) 15 mg IV NOW ONE Stop: 05/06/23 17:13 Last Admin: 05/06/23 17:24 Dose: 15 mg Documented By: [facility] Imaging Data Radiologist's Impression: Ribs w/Chest X-Ray 05/06/23 16:09 XR ribs RT min 2V w [id number] CLINICAL HISTORY: right sided chest/rib pain COMPARISON: Chest radiograph July 01, 2018. FINDINGS: Lung volumes are mildly diminished. There is no pneumothorax or pleural effusion. No consolidation is present. Borderline cardiomegaly is noted. No acute right rib fractures are identified. Minimal bibasilar opacities favor atelectasis. IMPRESSION: No pneumothorax. No acute right rib fractures. ACT 112: Negative or not required by law. Electronically signed by: Tavares Palacios M.D. 05/06/2023 5:10 PM Chest CTA 05/06/23 18:04 CT ANGIOGRAPHY OF THE CHEST, PULMONARY EMBOLUS PROTOCOL CLINICAL HISTORY: Right-sided abdominal pain. COMPARISON STUDY: Chest radiograph and right rib series May 06, 2023 and chest radiograph July 01, 2018. TECHNIQUE: Following IV administration of 109 mL of Optiray, helical axial images of the chest were obtained utilizing the pulmonary embolus protocol. Maximal intensity projections and sagittal and coronal reformats were viewed on an independent 3D workstation. IV contrast was administered without complication. Automated exposure control was utilized for the study. A dose lowering technique was utilized adhering to the principles of ALARA. CT DOSE: 3639.74 mGy.cm FINDINGS: No pulmonary emboli are identified. There is no thoracic aortic dis section. Size of the heart is at the upper limits of normal. There is no pericardial effusion. There are several prominent cardiophrenic angle nodes. Index right cardiophrenic angle node on axial image 43 of 183 measures 1.1 x 0.8 cm. There are few prominent mediastinal lymph nodes. No pneumothorax or pleural effusion is present. There is no consolidation to suggest pneumonia. Groundglass opacities favor atelectasis. There are calcified granulomas within the lungs. No suspicious lesions within the bony thorax are noted. A right hepatic lobe mass with suspected satellite lesions are better depicted on the CT of the abdomen and pelvis which will be reported separately. IMPRESSION: 1. No pulmonary emboli identified. 2. No consolidation to suggest pneumonia. 3. Right hepatic lobe mass with suspected satellite lesions. These findings are better depicted on the CT of the abdomen and pelvis which will be reported separately. 4. Prominent mediastinal and right cardiophrenic angle lymph nodes. These lymph nodes are probably benign but indeterminate and can be assessed on follow-up exams to ensure stability. ACT 112: Negative or not required by law. Electronically signed by: Tavares Palacios M.D. 05/06/2023 7:[address] 05/06/23 18:04 CT OF THE ABDOMEN WITH AND WITHOUT CONTRAST LIVER PROTOCOL CLINICAL HISTORY: Liver mass. COMPARISON STUDY: CT of the abdomen and pelvis April 22, 2023. TECHNIQUE: Unenhanced, arterial and venous phase imaging of the abdomen performed. Intravenous injection of 109 cc of Optiray 320 IV was uneventful. Sagittal and coronal reconstructions were viewed. Automated exposure control was utilized for the study. A dose lowering technique was utilized adhering to the principles of ALARA. FINDINGS: No pneumatosis, free air or portal venous gas is present. There are several prominent cardiophrenic angle nodes. There is no biliary ductal dilatation status post cholecystectomy. Note is made of a heterogeneous hypodense right hepatic lobe mass which measures approximately 11.9 x 8.4 cm. There are numerous additional hypodense lesions throughout the liver, predominantly within the right lobe. A few lesions extends into the medial segment of the left lobe. These suspected satellite lesions measure up to 2.2 cm. These lesions are conglomerate in nature. There is mild associated capsular retraction of the liver. There is also trace perihepatic fluid. Mildly enlarged portacaval lymph node measures 2.3 x 1.3 cm. Mildly enlarged peripancreatic node measures 1.9 x 1.3 cm. The spleen, adrenal glands are unremarkable. There is a 2 mm left renal calculus. A 2.1 right renal cyst is noted. A few subcentimeter bilateral renal lesions are too small to characterize. Colonic diverticulosis is noted. No evidence for acute diverticulitis within visualized portions of the colon. No suspicious lesions within the visualized skeletal structures. IMPRESSION: 1. Large hypodense heterogeneous right hepatic lobe mass which measures approximately 11.9 x 8.4 cm with numerous satellite hepatic lesions as described above. These findings are neoplastic and favor a primary liver malignancy with satellite metastases. Metastatic disease could appear similar although is consid ered less likely. An index lesion would be amenable to ultrasound-guided biopsy. 2. Multiple mildly enlarged fidelina hepatis and peripancreatic lymph nodes. These nodes are indeterminate and karina spread of disease cannot be excluded. ACT 112: Positive. There are findings on this exam that require communication between the performing entity and the patient following Patient Test Result Information Act ([place] Act 112) guidelines. Electronically signed by: Tavares Palacios M.D. 05/06/2023 7:23 PM Discharge Plan Visit Data Chief Complaint: Rib Injury/Pain Stated Complaint: SIDE PAIN NEAR RIBS, ED Provider: Dheeraj Lundy Discharge Problem: Abdominal mass, Liver mass, Acute hypokalemia Forms Stand Alone Forms: [facility] Prescriptions Prescriptions: No Action candesartan 8 mg tablet 8 mg PO QAM atorvastatin 20 mg Tablet 20 mg PO QAM cyclobenzaprine 5 mg tablet 5 mg PO TID metformin 500 mg tablet 500 mg PO BID acetaminophen [Tylenol Extra Strength] 500 mg Tablet 1,000 mg PO Q6H PRN (Reason: Pain) ascorbic acid (vitamin C) [Vitamin C] 500 mg Tablet 500 mg PO DAILY ferrous sulfate [iron] 325 mg (65 mg iron) Tablet 325 mg PO DAILY hydrochlorothiazide 25 mg tablet 25 mg PO DAILY cholecalciferol (vitamin D3) [Vitamin D3] 50 mcg (2,000 unit) Tablet 0 mcg PO DAILY Referrals Referrals: Renuka Gallardo PA-C [Primary Care Provider] -
[2023-05-06 17:58] LABS: D Dimer 930 ug/L FEU (0-500)
[2023-05-06 18:17] LABS: Appearance Urine Cloudy (Clear); Bacteria Urine Automated 1+ (Negative); Bilirubin Urine Negative (Negative); Blood Urine Negative (Negative); Color Urine Yellow; Epithelial Cell Urine Auto >30 /lpf (0-5); Glucose Urine UA Negative (Negative); Ketones Urine Negative (Negative); Leukocyte Esterase Urine Negative (Negative); Nitrite Urine Negative (Negative); Protein Urine Negative (Negative); RBC Urine Automated 0-4 /hpf (0-4); Specific Gravity Urine 1.021 (1.000-1.030); Urobilinogen Urine Negative (Negative); pH Urine 5.5 (4.5-7.5)
[2023-05-06] MEDS ORDERED: OPTIRAY 320 100ml IV ONE (18:36)
[2023-05-06] MEDS ORDERED: OPTIRAY 320 500ml IV ONE (18:43)
--- NOTE | 2023-05-06 19:09 | CT Scan Report ---
CT ANGIOGRAPHY OF THE CHEST, PULMONARY EMBOLUS PROTOCOL CLINICAL HISTORY: Right-sided abdominal pain. COMPARISON STUDY: Chest radiograph and right rib series May 06, 2023 and chest radiograph July 01, 2018. TECHNIQUE: Following IV administration of 109 mL of Optiray, helical axial images of the chest were o btained utilizing the pulmonary embolus protocol. Maximal intensity projections and sagittal and cor onal reformats were viewed on an independent 3D workstation. IV contrast was administered without co mplication. Automated exposure control was utilized for the study. A dose lowering technique was ut ilized adhering to the principles of ALARA. CT DOSE: 3639.74 mGy.cm FINDINGS: No pulmonary emboli are identified. There is no thoracic aortic dissection. Size of the he art is at the upper limits of normal. There is no pericardial effusion. There are several prominent c ardiophrenic angle nodes. Index right cardiophrenic angle node on axial image 43 of 183 measures 1.1 x 0.8 cm. There are few prominent mediastinal lymph nodes. No pneumothorax or pleural effusion is pre sent. There is no consolidation to suggest pneumonia. Groundglass opacities favor atelectasis. There are calcified granulomas within the lungs. No suspicious lesions within the bony thorax are noted. A right hepatic lobe mass with suspected satellite lesions are better depicted on the CT of the abdomen and pelvis which will be reported separately. IMPRESSION: 1. No pulmonary emboli identified. 2. No consolidation to suggest pneumonia. 3. Right hepatic lobe mass with suspected satellite lesions. These findings are better depicted on th e CT of the abdomen and pelvis which will be reported separately. 4. Prominent mediastinal and right cardiophrenic angle lymph nodes. These lymph nodes are probably be nign but indeterminate and can be assessed on follow-up exams to ensure stability. ACT 112: Negative or not required by law. Electronically signed by: Tavares Palacios M.D. 05/06/2023 7:06 PM
--- NOTE | 2023-05-06 19:25 | CT Scan Report ---
CT OF THE ABDOMEN WITH AND WITHOUT CONTRAST LIVER PROTOCOL CLINICAL HISTORY: Liver mass. COMPARISON STUDY: CT of the abdomen and pelvis April 22, 2023. TECHNIQUE: Unenhanced, arterial and venous phase imaging of the abdomen performed. Intravenous inject ion of 109 cc of Optiray 320 IV was uneventful. Sagittal and coronal reconstructions were viewed. Aut omated exposure control was utilized for the study. A dose lowering technique was utilized adhering to the principles of ALARA. FINDINGS: No pneumatosis, free air or portal venous gas is present. There are several prominent cardi ophrenic angle nodes. There is no biliary ductal dilatation status post cholecystectomy. Note is made of a heterogeneous hypodense right hepatic lobe mass which measures approximately 11.9 x 8.4 cm. The re are numerous additional hypodense lesions throughout the liver, predominantly within the right lob e. A few lesions extends into the medial segment of the left lobe. These suspected satellite lesions measure up to 2.2 cm. These lesions are conglomerate in nature. There is mild associated capsular ret raction of the liver. There is also trace perihepatic fluid. Mildly enlarged portacaval lymph node me asures 2.3 x 1.3 cm. Mildly enlarged peripancreatic node measures 1.9 x 1.3 cm. The spleen, adrenal g lands are unremarkable. There is a 2 mm left renal calculus. A 2.1 right renal cyst is noted. A few s ubcentimeter bilateral renal lesions are too small to characterize. Colonic diverticulosis is noted. No evidence for acute diverticulitis within visualized portions of the colon. No suspicious lesions w ithin the visualized skeletal structures. IMPRESSION: 1. Large hypodense heterogeneous right hepatic lobe mass which measures approximately 11.9 x 8.4 cm w ith numerous satellite hepatic lesions as described above. These findings are neoplastic and favor a primary liver malignancy with satellite metastases. Metastatic disease could appear similar although is considered less likely. An index lesion would be amenable to ultrasound-guided biopsy. 2. Multiple mildly enlarged fidelina hepatis and peripancreatic lymph nodes. These nodes are indetermina te and karina spread of disease cannot be excluded. ACT 112: Positive. There are findings on this exam that require communication between the performing entity and the patient following Patient Test Result Information Act ([place] Act 112) guidelines. Electronically signed by: Tavares Palacios M.D. 05/06/2023 7:23 PM
--- NOTE | 2023-05-06 22:57 | History and Physical Report ---
DATE OF ADMISSION: 05/06/2023. CHIEF COMPLAINT: Right upper quadrant pain and found to have liver mass. HISTORY OF PRESENT ILLNESS: A 53-year-old female with past medical history significant for hyperlipidemia; Graves' disease, in remission; nontoxic multinodular goiter; thyroid nodule; prediabetes; hypertension; morbid obesity; bilateral hearing loss, on hearing aids. Presents with right upper abdominal pain. The patient's right upper quadrant abdominal pain is going on for the last 2 weeks, it is getting progressively worse. She was in the ER on 04/22/2023 and at that time, CAT scan showed some nonspecific liver lesions, so plan was to follow as outpatient, but the pain was not getting better, it was getting worse. Sometimes with activity, she gets severe right upper quadrant pain. 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 Sometimes at work also she is having severe pains. That is the reason she came back here and the liver CT scan is showing liver mass suspicious for primary liver cancer. ER spoke to oncology research associate quality control qc and advised for biopsy. Plan for IR liver biopsy tomorrow. The patient is somewhat hard of hearing, but denies any chest pain, no shortness of breath, no cough, no fevers, no recent weight gain or weight loss. Occasional night sweats she attributes to her menopause. No headache, no blurred visions, no sore throat. The patient says she could not push hard for bowel movement or bladder movement because it is causing severe right upper quadrant abdominal pain. Seems somewhat constipated. She is hemodynamically stable. ALLERGIES: No known drug allergies. PAST MEDICAL HISTORY: As mentioned above. PAST SURGICAL HISTORY: Colonoscopy, laparoscopic cholecystectomy, ligation of oviducts. MEDICATIONS: The patient is on Tylenol 1000 mg p.o. q. 6 hours p.r.n., vitamin C 500 mg p.o. daily, atorvastatin 20 mg p.o. daily, candesartan 8 mg p.o. daily, vitamin D 25 mcg p.o. daily, cyclobenzaprine 5 mg p.o. t.i.d., ferrous sulfate 325 mg p.o. daily, hydrochlorothiazide 25 mg p.o. daily, metformin 500 mg p.o. b.i.d. FAMILY HISTORY: Significant for maternal grandmother has diabetes; paternal grandmother has diabetes; mother has hypertension, sleep apnea, skin cancer, thyroid disorder. SOCIAL HISTORY: , no smoking. Alcohol, rarely. No drug use. REVIEW OF SYSTEMS: As per HPI. Rest of the review of systems is negative. PHYSICAL EXAMINATION: GENERAL: The patient is morbidly obese, not in acute distress. VITAL SIGNS: Temperature 37, pulse 85, respiratory rate 24, blood pressure 111/87, oxygen 95% on room air. HEENT: Pupils equal, round and reactive to light. Oral mucosa moist. NECK: No JVD, no neck masses. CARDIOVASCULAR: S1 and S2 heard. Regular rate and rhythm. No murmur, no gallop. RESPIRATORY SYSTEM: Normal AP diameter. No accessory muscle use. No wheezing, no crackles. ABDOMEN: Soft, bowel sounds present. Right upper quadrant tenderness present. No guarding, no distention. CENTRAL NERVOUS SYSTEM: Cranial nerves II-XII grossly intact, nonfocal. EXTREMITIES: No edema, no erythema. LABORATORY DATA: WBC 9, hemoglobin 12.6, hematocrit 37.6, platelets 285. D- dimer 930. Sodium 138, potassium 3.3, chloride 97, bicarbonate 31, BUN 16, creatinine 0.9, serum glucose 105, calcium 9.8, total bilirubin 0.4, AST 23, ALT 15, alkaline phosphatase 116. Troponin I high sensitivity 2.7, repeat 3.1, lipase 27. Urinalysis, +1 bacteria. SARS-CoV-2 rapid test pending. IMAGING DATA: Liver CT: 1. Large hypodense heterogeneous right hepatic lobe mass which measures approximately 11.9 x 8.4 cm with numerous satellite hepatic lesions as described above. These findings are neoplastic and favor a primary liver malignancy with satellite metastases. Metastatic disease could appear similar although is considered less likely. An index lesion would be amenable to ultrasound-guided biopsy. 2. Multiple mildly enlarged fidelina hepatis and peripancreatic lymph nodes. These nodes are indeterminate and karina spread of disease cannot be excluded. CTA chest: 1. No pulmonary emboli identified. 2. No consolidation to suggest pneumonia. 3. Right hepatic lobe mass with suspected satellite lesions. These findings are better depicted on the CT of the abdomen and pelvis which will be reported separately. 4. Prominent mediastinal and right cardiophrenic angle lymph nodes. These lymph nodes are probably benign but indeterminate and can be assessed on follow-up exams to ensure stability. . Rib x-ray, no pneumothorax, no acute rib fractures. EKG: Normal sinus rhythm at a rate of 89, no significant change was found. ASSESSMENT AND PLAN: This is a 53-year-old female who presents with right upper quadrant abdominal pain and found to have liver mass. 1. Right upper quadrant pain and liver mass: Plan for IR biopsy tomorrow. Will also consult GI. Pain control. Follow up with hem/onc. 2. History of hypertension: Continue her home medication, monitor the blood pressure. 3. Hyperlipidemia: Will hold the statin for now. 4. Prediabetes: Will place on insulin sliding scale. Follow the HbA1c level. 5. History of Graves' disease, in remission: Will follow the thyroid profile. 6. Possible urinary tract infection: Will place on Rocephin. Follow the culture. 7. Deep venous thrombosis prophylaxis: Sequential compression devices. DISPOSITION: Closely monitor in the medical floor. Expect to discharge home and follow with family doctor and oncology. Job ID: [id number] [id number]
[2023-05-06] MEDS ORDERED: GLUCOSE 40% GEL 15 GM TUBE PO PRN (23:31)
[2023-05-06] MEDS ORDERED: MoRPHine SULFATE 4 MG/ML 1 ML CARP\\VIAL IV PRN (23:31)
[2023-05-06] MEDS ORDERED: GLUCOSE 10 TAB/TUBE PO PRN (23:31)
[2023-05-06] MEDS ORDERED: POLYETHYLENE (MIRALAX) 17 GM PACK PO PRN (23:31)
[2023-05-06] MEDS ORDERED: CARBOHYDRATES FOR HYPOGLYCEMIA PO PRN (23:31)
[2023-05-06] MEDS ORDERED: DEXTROSE 50% 50 ML SYRINGE IV PRN (23:31)
[2023-05-06] MEDS ORDERED: GLUCAGON FOR INJ 1 MG VIAL SQ PRN (23:31)
[2023-05-07] MEDS: cefTRIAXone SODIUM 2,000 MG in DEXTROSE 5% 50 ML IV SCH ×2 (00:08→23:45)
[2023-05-07] MEDS: INSULIN ASPART PER UNIT CHARGE SC SCH ×5 (00:11→20:41)
[2023-05-07 05:51] LABS: Basophils # (auto) 0.03 K/uL (0-0.2); Basophils % (auto) 0.5 %; Eosinophils # (auto) 0.24 K/uL (0-0.50); Eosinophils % (auto) 4.3 %; Hematocrit (blood only) 34.5 % (37.0-47.0); Hemoglobin 11.4 g/dl (12.0-16.0); Immature Granulocytes # (auto) 0.02 K/uL (0.01-0.20); Immature Granulocytes % (auto) 0.4 %; Lymphocytes # (auto) 1.42 K/uL (1.2-3.4); Lymphocytes % (auto) 25.7 %; Mean Corpuscular Hemoglobin 26.5 pg (25.0-34.0); Mean Corpuscular Volume 80.2 fL (80.0-100.0); Mean Platelet Volume 9.4 fL (9.4-12.4); Monocytes # (auto) 0.43 K/uL (0.11-0.59); Monocytes % (auto) 7.8 %; Neutrophils # (auto) 3.39 K/uL (1.40-6.50); Neutrophils % (auto) 61.3 %; Platelet Count 231 K/uL (130-400); RDW Coefficient of Variation 13.9 % (11.5-14.5); RDW Standard Deviation 40.6 fL (36.4-46.3); White Blood Count 5.53 K/ul (4.8-10.8)
[2023-05-07 06:07] LABS: Albumin Level 3.9 gm/dl (3.4-5.0); BUN Creatinine Ratio 20.8 (10-20); Bilirubin,Total 0.4 mg/dl (0.2-1.0); Calcium 9.2 mg/dl (8.6-10.3); Creatinine Clr Calc Pharmacy 101.5 ml/min; Est GFR (African American) 111.6 ml/min; Est GFR (Non-African American) 96.3 ml/min; Magnesium 2.1 mg/dl (1.7-2.4); Potassium 3.1 mmol/L (3.5-5.1)
[2023-05-07 07:02] LABS: Estimated Average Glucose 134 mg/dl; Hemoglobin A1C 6.3 % (4.5-5.6)
[2023-05-07] MEDS: ASCORBIC ACID 500 MG TAB PO SCH (08:46)
[2023-05-07] MEDS: CHOLECALCIFEROL 1,000 UNITS 25 MCG TAB PO SCH (08:46)
[2023-05-07] MEDS: CYCLOBENZAPRINE HCL 5 MG TAB PO SCH ×2 (08:46→14:33)
[2023-05-07] MEDS: FERROUS SULFATE 325 MG TAB PO SCH (08:46)
[2023-05-07] MEDS: LOSARTAN POTASSIUM 25 MG TAB PO SCH (08:46)
[2023-05-07] MEDS: hydroCHLOROthiazide 25 MG TAB PO SCH (08:46)
[2023-05-07] MEDS ORDERED: POTASSIUM CHLORIDE CRTAB 20 MEQ TABCR PO ONE (08:50)
[2023-05-07] MEDS ORDERED: DOCUSATE SODIUM 100 MG CAP PO PRN (08:55)
--- NOTE | 2023-05-07 10:17 | Gastrointestinal Consultation ---
Date of Consultation May 07, 2023 Assessment & Plan (1) Liver mass: Pt is a 53 yo w c/o RUQ abd pain found to have R liver mass measuring 11 x 8cm concerning for primary malignancy w satellite metastases, lymphadenopathy on CT liver. LFTs normal. Acute hepatitis panel, AFP pending. - Unable to undergo IR liver bx today given that she received Toradol <24hrs ago. - Not on anticoagulant but will check coag function - F/U AFP, acute hep panel - Discussed w primary hospitalist. If pt would like to be discharged today, may return to obtain her liver bx as OP procedure which will be coordinate with Radiology department. - Hematology referral once liver bx and path report obtained Supervising Physician Co-Signing Physician Notes Attending attestation I have seen, examined this patient, and agree with the findings and above by our mid-level provider NORIS Perla, with the following additions: liver mass/masses that are ill defined, awaiting bx. Follow up pending those results likely with oncology No signs cirrhosis or other lesions suggesting metastasis History of Present Illness Reason for Consultation: Liver mass Requesting Physician: Dr. Sabas Conn Attending Physician: Dr. Gregorio Thapa History of Present Illness Patient is a 53 years old female with past medical history including hyperlipidemia, Graves' disease, multinodular goiter, prediabetes, hypertension, morbid obesity, bilateral hearing loss who presented to the ED yesterday with complaints of right upper quadrant abdominal pain. Patient reports that the pain has been going on since which is progressively getting worse. She went to the ED at the end of March, noncontrasted CT of the abdomen pelvis at that time showed ill-defined hypodensity of the liver? FNH versus hemangioma. She was advised for outpatient follow-up. Because the abdominal pain is not getting any better she returned to the ED. Upon evaluation she was found to have mild anemia, elevated D-dimer. CTA of chest without PEs. Liver CT obtained as well which showed large hypodense heterogeneous right hepatic lobe mass which measures approximately 11.9 x 8.4 cm with numerous satellite hepatic lesions, a primary liver malignancy with satellite metastases. She also has multiple mildly enlarged fidelina hepatis and peripancreatic lymph nodes. These nodes are indeterminate and karina spread of disease cannot be excluded. IR biopsy of liver mass ordered but unfortunately unable to be performed today as pt received Toradol <24hrs ago. She is frustrated today, given lack of progress in her care and feeling tired, unable to rest all night due to sleep interruptions. She reports still having pain on RUQ abd area but less. Denies n/v, fever, chills. Pt denies hx of liver dz, GI malignancy in family. Denies tobacco, or illicit drugs. Rarely drinks ETOH. Has tattoos. Acute hepatitis panel and AFP pending. Allergies Allergy/AdvReac Type Severity Reaction Status Date / Time No Known Allergies Allergy Verified 04/22/23 14:26 Home Medications Medication Instructions Recorded Confirmed Type candesartan 8 mg tablet 8 mg PO QAM 05/02/19 05/06/23 History atorvastatin 20 mg tablet 20 mg PO QAM 06/12/19 05/06/23 History acetaminophen 500 mg tablet 1,000 mg PO Q6H PRN Pain 04/22/23 05/06/23 History (Tylenol Extra Strength) ascorbic acid (vitamin C) 500 mg 500 mg PO DAILY 04/22/23 05/06/23 History tablet (Vitamin C) cholecalciferol (vitamin D3) 50 0 mcg PO DAILY 04/22/23 05/06/23 History mcg (2,000 unit) tablet (Vitamin D3) ferrous sulfate 325 mg (65 mg 325 mg PO DAILY 04/22/23 05/06/23 History iron) tablet (iron) hydrochlorothiazide 25 mg tablet 25 mg PO DAILY 04/22/23 05/06/23 History metformin 500 mg tablet 500 mg PO BID 04/22/23 05/06/23 History cyclobenzaprine 5 mg tablet 5 mg PO TID 05/06/23 05/06/23 History Patient History Medical History Graves' disease HLD (hyperlipidemia) Family History Other Family history non-contributory Social History Smoking Status: Never smoker Second Hand Exposure: No; Do You Dip or Chew Tobacco: No; Tobacco Cessation Education Requested by Patient: No Hx Alcohol Use: Yes Hx Substance Use: No Preferred Language: [place] Citizen Communication Ability: Effective Prefabricator Required: No Beliefs That Will Affect Care: None Current Living Situation: Spouse Other Information That Helps Us Care for You: No Feels Safe at Home: Yes Safety Concerns: Feels Safe At This Time Assistive Devices: Glasses Review of Systems Review of Systems: All systems reviewed & are unremarkable except as noted in HPI & below Physical Exam Constitutional: WD/WN, vitals as above well groomed, cooperative and comfortable Eyes: PERRL, conjunctivae normal, anicteric sclerae ENMT: external ear and nose normal, oropharynx normal Respiratory: normal respiratory effort, lungs clear to auscultation Cardiovascular: RRR, no murmur, no edema Gastrointestinal (Abdomen): TTP RUQ, soft, BS present Skin: no rashes, warm and dry no jaundice Psychiatric: A+Ox3, euthymic affect Lymphatic: no lymphedema Results & Data Vital Signs (Past 12 Hours) Vital Signs Temp Pulse Pulse Resp BP BP Pulse Ox 05/07/23 08:11 36.8 C 72 16 113/77 94 05/06/23 23:34 05/06/23 23:32 36.6 C 81 16 142/83 H 98 05/06/23 22:29 86 17 108/66 95 O2 Del Method 05/07/23 08:11 Room Air 05/06/23 23:34 Room Air 05/06/23 23:32 Room Air 05/06/23 22:29 Room Air
[2023-05-07 10:19] LABS: Fibrinogen 506 mg/dl (184-400); Partial Thromboplastin Ratio 0.9; Partial Thromboplastin Time 26.5 Seconds (21.0-31.0)
[2023-05-07] MEDS ORDERED: CYCLOBENZAPRINE HCL 5 MG TAB PO PRN (15:08)
--- NOTE | 2023-05-07 15:31 | Hospitalist Progress Note ---
Date of Service May 07, 2023 Assessment & Plan (1) Abdominal mass: (2) Liver mass: (3) Acute hypokalemia: (4) HTN (hypertension): (5) HLD (hyperlipidemia): Plan This is a 53-year-old female with past medical history significant for hyperlipidemia; Graves' disease, in remission; nontoxic multinodular goiter; thyroid nodule; prediabetes; hypertension; morbid obesity; bilateral hearing loss, on hearing aids who presents with RUQ pain and was found to have a right liver mass. RUQ mass Liver CT: 1. Large hypodense heterogeneous right hepatic lobe mass which measures approximately 11.9 x 8.4 cm with numerous satellite hepatic lesions as described above. These findings are neoplastic and favor a primary liver malignancy with satellite metastases. Metastatic disease could appear similar although is considered less likely. An index lesion would be amenable to ultrasound-guided biopsy. Plan for IR biopsy in the AM - cannot have received any nsaids within a 24 hour period. Pain control as needed with tylenol, will add oxycodone for severe pain prn Plan for hem/onc follow up once pathology results Evaluated by GI - acute hepatitis panel and AFP pending Trial of regular diet for now, NPO after midnight HTN Continue hctz, candesartan. Monitor lytes Prediabetes A1c 6.3. DM II diet. No need for insulin sliding scale for now Possible UTI Continue empiric Rocephin, follow urine cx H/o hematochezia Intermittent over last few years, most recently last week. FOBT ordered in case recurs, H/H stable, will need outpatient colonoscopy DVT Ppx: SCDs Code status: FULL PCP: FLYNN Gallardo Dispo: admitted to med/surg I spent a total of 60 minutes coordinating, documenting, and providing care for this patient excluding time spent in the performance of separately billed services. Admission and Anticipated Discharge Date Admission Date: May 06, 2023 Supervising Physician Co-Signing Physician Notes Patient is seen and examined at bedside. States having minimal right upper quadrant abdominal discomfort especially with food intake. Denies any nausea, vomiting, chest pain, dyspnea. Plan for liver biopsy tomorrow. Patient also reports intermittent bleeding per rectum. Physical Exam: Vitals signs as noted above General Appearance:Morbidly Obese,no apparent distress Head: normocephalic, Atraumatic Eyes: normal inspection, EOMI Neck: supple, Trachea midline Respiratory/Chest: Normal breath sounds, CTA, No accessory muscle use Cardiovascular: S1, S2, No murmur Abdomen/GI:Soft, RUQ mild tender, Bowel sounds present Extremities/Musculoskeletal:normal inspection, no edema Neurologic/Psych:AAOX3, grossly no focal neurological deficits Skin: normal color, warm Liver mass Suspected malignancy Plan for liver biopsy tomorrow Avoid NSAIDs, anticoagulation for 24 hours prior to biopsy IR consulted to help with biopsy GI on board Needs follow-up with oncology/GI upon discharge AFP levels, hepatitis panel pending. Advance diet as tolerated N.p.o. after midnight Intermittent hematochezia Check FOBT No active bleeding issues Hb stable Updated GI May need colonoscopy as outpatient Morbid obesity BMI 43 Suspected UTI Asymptomatic Empirically on Rocephin Follow-up urine cultures I personally reviewed the record. Patient is interviewed and examined at bedside. Patient's care is coordinated with Loree Kothari PA-C. Please refer to the documentation above for details of patient's presentation and for discussion of other issues. Subjective Seen and examined in 377 in follow-up for liver mass. Unable to have IR biopsy done until tomorrow morning. Still having some discomfort in epigastrium and right upper quadrant especially after eating or bending down to get something. Denies any nausea or vomiting. Interested in advancing diet while she can. Upon further ROS review, patient endorsing years of intermittent bright red blood per rectum. Has not had a colonoscopy in 10 years but believes she has history of hemorrhoids. Discussed need to follow-up with GI for outpatient colonoscopy. Currently resting comfortably. Denies any fever, chills, chest pain, shortness of breath, nausea, vomiting, dysuria, diarrhea or constipation. Review of Systems Review of Systems: At least ten systems reviewed and negative except as noted in the HPI. Physical Exam Physical Exam: Please see Dr. Conn's addendum for physical exam. Results & Data Results & Data Vital Signs (Past 12 Hours) Vital Signs Temp Pulse Resp BP Pulse Ox O2 Del Method 05/07/23 08:11 36.8 C 72 16 113/77 94 Room Air Laboratory Results Short CBC 05/06/23 05/07/23 Range/Units 16:40 05:30 WBC 9.05 5.53 (4.8-10.8) K/ul Hgb 12.6 11.4 L (12.0-16.0) g/dl Hct 37.6 34.5 L (37.0-47.0) % Plt Count 285 231 (130-400) K/uL BMP 05/06/23 05/07/23 16:40 05:30 Sodium 138 140 Potassium 3.3 L 3.1 L Chloride 97 L 101 Carbon Dioxide 31 32 BUN 16 15 Creatinine 0.94 0.72 Glucose 105 H 98 Calcium 9.8 9.2 Liver Function 05/06/23 05/07/23 Range/Units 16:40 05:30 Total Bilirubin 0.4 0.4 (0.2-1.0) mg/dl Direct Bilirubin 0.0 (0-0.2) mg/dl AST 23 20 (13-39) U/L ALT 15 14 (7-52) U/L Alkaline Phosphatase 116 H 95 (34-104) U/L Albumin 4.4 3.9 (3.4-5.0) gm/dl Urine 05/06/23 Range/Units 17:05 Urine Color Yellow Urine Appearance Cloudy A (Clear) Urine pH 5.5 (4.5-7.5) Ur Specific [place] 1.021 (1.000-1.030) Urine Protein Negative (Negative) Urine Glucose (UA) Negative (Negative) Diagnostic Findings Ribs w/Chest X-Ray 05/06/23 16:09 XR ribs RT min 2V w CXR1V CLINICAL HISTORY: right sided chest/rib pain COMPARISON: Chest radiograph July 01, 2018. FINDINGS: Lung volumes are mildly diminished. There is no pneumothorax or pleural effusion. No consolidation is present. Borderline cardiomegaly is noted. No acute right rib fractures are identified. Minimal bibasilar opacities favor atelectasis. IMPRESSION: No pneumothorax. No acute right rib fractures. ACT 112: Negative or not required by law. Electronically signed by: Tavares Palacios M.D. 05/06/2023 5:10 PM Chest CTA 05/06/23 18:04 CT ANGIOGRAPHY OF THE CHEST, PULMONARY EMBOLUS PROTOCOL CLINICAL HISTORY: Right-sided abdominal pain. COMPARISON STUDY: Chest radiograph and right rib series May 06, 2023 and chest radiograph July 01, 2018. TECHNIQUE: Following IV administration of 109 mL of Optiray, helical axial images of the chest were obtained utilizing the pulmonary embolus protocol. Maximal intensity projections and sagittal and coronal reformats were viewed on an independent 3D workstation. IV contrast was administered without complication. Automated exposure control was utilized for the study. A dose lowering technique was utilized adhering to the principles of ALARA. CT DOSE: 3639.74 mGy.cm FINDINGS: No pulmonary emboli are identified. There is no thoracic aortic dissection. Size of the heart is at the upper limits of normal. There is no pericardial effusion. There are several prominent cardiophrenic angle nodes. Index right cardiophrenic angle node on axial image 43 of 183 measures 1.1 x 0.8 cm. There are few prominent mediastinal lymph nodes. No pneumothorax or pleural effusion is present. There is no consolidation to suggest pneumonia. Groundglass opacities favor atelectasis. There are calcified granulomas within the lungs. No suspicious lesions within the bony thorax are noted. A right hepatic lobe mass with suspected satellite lesions are better depicted on the CT of the abdomen and pelvis which will be reported separately. IMPRESSION: 1. No pulmonary emboli identified. 2. No consolidation to suggest pneumonia. 3. Right hepatic lobe mass with suspected satellite lesions. These findings are better depicted on the CT of the abdomen and pelvis which will be reported separately. 4. Prominent mediastinal and right cardiophrenic angle lymph nodes. These lymph nodes are probably benign but indeterminate and can be assessed on follow-up exams to ensure stability. ACT 112: Negative or not required by law. Electronically signed by: Tavares Palacios M.D. 05/06/2023 7:[address] 05/06/23 18:04 CT OF THE ABDOMEN WITH AND WITHOUT CONTRAST LIVER PROTOCOL CLINICAL HISTORY: Liver mass. COMPARISON STUDY: CT of the abdomen and pelvis April 22, 2023. TECHNIQUE: Unenhanced, arterial and venous phase imaging of the abdomen performed. Intravenous injection of 109 cc of Optiray 320 IV was uneventful. Sagittal and coronal reconstructions were viewed. Automated exposure control was utilized for the study. A dose lowering technique was utilized adhering to the principles of ALARA. FINDINGS: No pneumatosis, free air or portal venous gas is present. There are several prominent cardiophrenic angle nodes. There is no biliary ductal dilatation status post cholecystectomy. Note is made of a heterogeneous hypodense right hepatic lobe mass which measures approximately 11.9 x 8.4 cm. There are numerous additional hypodense lesions throughout the liver, predominantly within the right lobe. A few lesions extends into the medial segment of the left lobe. These suspected satellite lesions measure up to 2.2 cm. These lesions are conglomerate in nature. There is mild associated capsular retraction of the liver. There is also trace perihepatic fluid. Mildly enlarged portacaval lymph node measures 2.3 x 1.3 cm. Mildly enlarged peripancreatic node measures 1.9 x 1.3 cm. The spleen, adrenal glands are unremarkable. There is a 2 mm left renal calculus. A 2.1 right renal cyst is noted. A few subcentimeter bilateral renal lesions are too small to characterize. Colonic diverticulosis is noted. No evidence for acute diverticulitis within visualized portions of the colon. No suspicious lesions within the visualized skeletal structures. IMPRESSION: 1. Large hypodense heterogeneous right hepatic lobe mass which measures approximately 11.9 x 8.4 cm with numerous satellite hepatic lesions as described above. These findings are neoplastic and favor a primary liver malignancy with satellite metastases. Metastatic disease could appear similar although is considered less likely. An index lesion would be amenable to ultrasound-guided biopsy. 2. Multiple mildly enlarged fidelina hepatis and peripancreatic lymph nodes. These nodes are indeterminate and karina spread of disease cannot be excluded. ACT 112: Positive. There are findings on this exam that require communication between the performing entity and the patient following Patient Test Result Information Act ([place] Act 112) guidelines. Electronically signed by: Tavares Palacios M.D. 05/06/2023 7:23 PM (4) HTN (hypertension) Hypertension type: unspecified Qualified Code(s): I10 - Essential (primary) hypertension
--- NOTE | 2023-05-07 18:57 | Electrocardiogram Report ---
Test Reason : Blood Pressure : / mmHG Vent. Rate : 089 BPM Atrial Rate : 089 BPM P-R Int : 150 ms QRS Dur : 074 ms QT Int : 392 ms P-R-T Axes : 031 -09 -03 degrees QTc Int : 476 ms Normal sinus rhythm Nonspecific ST abnormality When compared with ECG of 22-APR-2023 13:42, No significant change was found Confirmed by Sukhwinder Russell ([id number]) on 05/07/2023 6:56:51 PM Referred By: REFERRED SELF Confirmed By:Armani Russell
[2023-05-08 07:10] LABS: Hematocrit (blood only) 37.3 % (37.0-47.0); Hemoglobin 12.3 g/dl (12.0-16.0); Mean Corpuscular Hemoglobin 26.2 pg (25.0-34.0); Mean Corpuscular Volume 79.5 fL (80.0-100.0); Mean Platelet Volume 9.5 fL (9.4-12.4); Platelet Count 264 K/uL (130-400); RDW Coefficient of Variation 14.4 % (11.5-14.5); RDW Standard Deviation 41.3 fL (36.4-46.3); Red Blood Count 4.69 M/uL (4.20-5.40); White Blood Count 9.23 K/ul (4.8-10.8)
[2023-05-08 07:23] LABS: BUN Creatinine Ratio 15.8 (10-20); Calcium 9.6 mg/dl (8.6-10.3); Creatinine Clr Calc Pharmacy 96.1 ml/min; Est GFR (African American) 104.5 ml/min; Est GFR (Non-African American) 90.2 ml/min; Magnesium 2.1 mg/dl (1.7-2.4); Potassium 3.7 mmol/L (3.5-5.1)
[2023-05-08] MEDS: INSULIN ASPART PER UNIT CHARGE SC SCH (07:57)
[2023-05-08] MEDS: LOSARTAN POTASSIUM 25 MG TAB PO SCH (08:48)
[2023-05-08] MEDS: CHOLECALCIFEROL 1,000 UNITS 25 MCG TAB PO SCH (08:48)
[2023-05-08] MEDS: ASCORBIC ACID 500 MG TAB PO SCH (08:48)
[2023-05-08] MEDS: FERROUS SULFATE 325 MG TAB PO SCH (08:48)
[2023-05-08] MEDS: hydroCHLOROthiazide 25 MG TAB PO SCH (08:48)
--- NOTE | 2023-05-08 12:22 | Ultrasound Report ---
ULTRASOUND GUIDED CORE BIOPSY OF RIGHT HEPATIC LOBE MASS CLINICAL HISTORY: liver mass COMPARISON STUDY: CT of the abdomen May 06, 2023. PROCEDURE: Sonography of the liver demonstrated multiple hypoechoic liver lesions. Suitable lesion fo r biopsy within the inferior right hepatic lobe was targeted. The procedure, risks and benefits were discussed with the patient including the risk of bleeding, infection and injury to adjacent structure s. The patient agreed to the procedure and informed written consent was obtained. The procedure was p erformed by Dr. Palacios following a timeout. Prior to the biopsy, the patient was transiently vasov agal but quickly recovered. Skin of the right upper quadrant was prepped and draped in sterile fashio n and local anesthesia was achieved with 1% lidocaine. Under direct ultrasound guidance, 2 18-gauge c ore biopsies of the right hepatic lobe mass were obtained. Samples were deemed preliminarily adequate by pathology. No immediate complications were evident. IMPRESSION: Successful ultrasound guided 18-gauge core biopsy of a right hepatic lobe mass. ACT 112: Negative or not required by law. Electronically signed by: Tavares Palacios M.D. 05/08/2023 12:21 PM
[2023-05-08 13:38] LABS: HBSAG NON-REACTIVE (NON-REACTIVE); Hepatitis A Antibody IgM NON-REACTIVE (NON-REACTIVE); Hepatitis B Core Antibody IgM NON-REACTIVE (NON-REACTIVE)
--- NOTE | 2023-05-08 15:28 | Discharge Summary ---
Discharge Summary Date of Service May 08, 2023 Notes For Next Care Provider RUFred mass s/p liver core bx with path pending. will need heme/onc followup Medication Changes From Visit n/a Admission HPI Per Admitting Provider A 53-year-old female with past medical history significant for hyperlipidemia; Graves' disease, in remission; nontoxic multinodular goiter; thyroid nodule; prediabetes; hypertension; morbid obesity; bilateral hearing loss, on hearing aids. Presents with right upper abdominal pain. The patient's right upper quadrant abdominal pain is going on for the last 2 weeks, it is getting progressively worse. She was in the ER on 04/22/2023 and at that time, CAT scan showed some nonspecific liver lesions, so plan was to follow as outpatient, but the pain was not getting better, it was getting worse. Sometimes with activity, she gets severe right upper quadrant pain. 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 Sometimes at work also she is having severe pains. That is the reason she came back here and the liver CT scan is showing liver mass suspicious for primary liver cancer. ER spoke to oncology partner integration planner and advised for biopsy. Plan for IR liver biopsy tomorrow. The patient is somewhat hard of hearing, but denies any chest pain, no shortness of breath, no cough, no fevers, no recent weight gain or weight loss. Occasional night sweats she attributes to her menopause. No headache, no blurred visions, no sore throat. The patient says she could not push hard for bowel movement or bladder movement because it is causing severe right upper quadrant abdominal pain. Seems somewhat constipated. She is hemodynamically stable. Admission Exam Per Admitting Provider GENERAL: The patient is morbidly obese, not in acute distress. VITAL SIGNS: Temperature 37, pulse 85, respiratory rate 24, blood pressure 111/87, oxygen 95% on room air. HEENT: Pupils equal, round and reactive to light. Oral mucosa moist. NECK: No JVD, no neck masses. CARDIOVASCULAR: S1 and S2 heard. Regular rate and rhythm. No murmur, no gallop. RESPIRATORY SYSTEM: Normal AP diameter. No accessory muscle use. No wheezing, no crackles. ABDOMEN: Soft, bowel sounds present. Right upper quadrant tenderness present. No guarding, no distention. CENTRAL NERVOUS SYSTEM: Cranial nerves II-XII grossly intact, nonfocal. EXTREMITIES: No edema, no erythema. Principal Dx & Hospital Course #1 = Principal Diagnosis (1) Liver mass: (2) HTN (hypertension): (3) HLD (hyperlipidemia): (4) Graves' disease: (5) History of prediabetes: Plan This is a 53yo F with RUQ pain in setting of renal mass admitted for biopsy. Liver CT with large hypodense heterogeneous right hepatic lobe mass which measures approximately 11.9 x 8.4 cm with numerous satellite hepatic lesions. Findings concerning for a primary liver malignancy. Underwent liver core biopsy with pathology results pending. Will need hematology/oncology referral once path report obtained. Evaluated by GI, who do not see any signs of cirrhosis or other lesions suggesting metastasis. Abnormal urinalysis but urine culture with skin lisa so no indication for continued antibiotics. Will need to follow up for a routine colonoscopy due to reports of intermittent hematochezia in past year. No bleeding during admission, hgb stable, FOBT negative. Patient hemodynamically stable at time of discharge home. Discharge Exam Gen: WD/WN, NAD, sitting in bed, A&Ox3, anxious HEENT: Normocephalic, atraumatic, conjunctivae moist, sclerae anicteric, mucous membranes moist Lung: Clear to Auscultation bilaterally, no wheezes/rales/rhonchi Heart: Regular rate, regular rhythm, no murmurs, rubs, or gallops Abdomen: Soft, RUQ TTP extending under R breast, ND +BS x 4 Extremities: no edema Skin: Warm, no rash Updated Medication List Medication Instructions Recorded Confirmed Type candesartan 8 mg tablet 8 mg PO QAM 05/02/19 05/06/23 History atorvastatin 20 mg tablet 20 mg PO QAM 06/12/19 05/06/23 History acetaminophen 500 mg tablet 1,000 mg PO Q6H PRN Pain 04/22/23 05/06/23 History (Tylenol Extra Strength) ascorbic acid (vitamin C) 500 mg 500 mg PO DAILY 04/22/23 05/06/23 History tablet (Vitamin C) cholecalciferol (vitamin D3) 50 0 mcg PO DAILY 04/22/23 05/06/23 History mcg (2,000 unit) tablet (Vitamin D3) ferrous sulfate 325 mg (65 mg 325 mg PO DAILY 04/22/23 05/06/23 History iron) tablet (iron) hydrochlorothiazide 25 mg tablet 25 mg PO DAILY 04/22/23 05/06/23 History metformin 500 mg tablet 500 mg PO BID 04/22/23 05/06/23 History cyclobenzaprine 5 mg tablet 5 mg PO TID 05/06/23 05/06/23 History Hospital Stay Data Consultations 05/06/23 20:18 ED Decision to Admit Stat 05/07/23 08:00 Consult Gastroenterology Routine Diagnostic Imagining Performed 05/06/23 18:04 CT angio chest PE protocol Stat CT liver wo/w con Stat 05/08/23 11:00 IR biopsy liver US Routine Pending Results Patient Have Any Pending Studies at Discharge: Yes Discharge Instructions Given to Patient (Per Discharging Provider) MEDICATION CHANGES: None. SUMMARY OF TEST RESULTS: You were admitted to hospital with RUQ pain in setting of renal mass Liver CT with large hypodense heterogeneous right hepatic lobe mass which measures approximately 11.9 x 8.4 cm with numerous satellite hepatic lesions Underwent liver core biopsy with pathology results pending Evaluated by GI, who do not see any signs of cirrhosis or other lesions suggesting metastasis Will likely need hematology/oncology referral once path report obtained Abnormal urinalysis but urine culture with skin lisa so no indication for continued antibiotics PENDING TEST RESULTS: Liver core biopsy RECOMMENDATIONS FOR FOLLOW-UP: Follow up with PCP as scheduled to discuss pathology results from liver biopsy. No exercise or heavy lifting for one day after biopsy. Okay to return to work Thursday. Continue medication regimen as scheduled. Please schedule routine colonoscopy due to intermittent blood in stool (FOBT negative during admission) OTHER INSTRUCTIONS: Seek medical attention if you have: * temperature above 101 * chest pain or trouble breathing * abdominal pain, nausea, vomiting * diarrhea, dark stools or bloody stools * any unanswered questions or concerns Call 911 if symptoms are severe. Please take good care of yourself. Call if you have any questions or problems. You can reach a [facility] hospitalist on duty at [facility] 24 hours a day by calling [phone]. Total Time Total Time Spent Total Time Spent (In Minutes): 40 Supervising Physician Co-Signing Physician Notes Pt seen and examined by myself, Diane Madera MD on the day of service. Care was coordinated with Loree Kothari PA-C. Please refer to her note for additional information. 53yoF who presented with RUQ pain, found to have a hepatic mass that was biopsied. Pt agreeable to discharge home after biopsy, with close follow up with GI for results. Advising will likely also need follow up with hematolgy/oncology. PCP follow up as well. Otherwise as above.
--- NOTE | 2023-05-18 06:45 | Coding Query ---
PATHOLOGY To promote full compliance with coding requirements relating to patient care, physician participation is requested in all cases of child and adolescent psychiatrist uncertainty. Please assist us with the question(s) below: Please review the Pathology report and please document any relevant diagnosis(es) below: Diagnosis(es): Cholangiocarcinoma Thank you Alicia MANCIA
== END 2023-05-08 16:14 | disposition home or self-care (01) | DRG 436 ==
LOC: ED 15:53 → 3N 21:10 → SUATTDRO 21:10 → 3N 22:39